=== PATIENT | male | born 1930 | race Caucasian/White ===

== ENCOUNTER 2017-03-26 01:10 | Emergency (ER) | payer MEDICARE ==
[2017-03-26] MEDS ORDERED: NS 0.9% 1000 ML* 1,000 ML IV ONE (01:35)
[2017-03-26] MEDS ORDERED: Ondansetron INJ* 2 MG/ML VIAL IV ONE (01:35)
[2017-03-26] MEDS ORDERED: fentaNYL* 50 MCG/ML 2 ML VIAL (100 MCG VIAL) IV SLOW PU ONE (01:36)
[2017-03-26 02:02] LABS: ABS Basophils 0.1 10^3/ul (0-0.2); ABS Eosinophils 0.2 10^3/ul (0-0.6); ABS Lymphocytes 2.2 10^3/ul (1.0-4.8); ABS Monocytes 0.7 10^3/ul (0-0.8); ABS Neutrophils 8.1 10^3/ul (1.5-7.7); ABS Nucleated RBC 0 10^3/ul; Eosinophil % 2.2 % (0-6); Hematocrit 42 % (42-52); Hemoglobin 14.1 g/dl (14.0-18.0); Lymphocyte % 19.8 % (25-47); Mean Corpuscular HGB Conc 34 g/dl (31-36); Mean Corpuscular Hemoglobin 30 pg (27-31); Mean Corpuscular Volume 88 fL (80-94); Mean Platelet Volume 8 um3 (7.4-10.4); Nucleated Red Blood Cells % 0; Platelet Count 179 10^3/ul (150-450); Red Blood Count 4.76 10^6/ul (4.0-5.4); Red Cell Distribution Width 14 % (10.5-15); White Blood Count 11.3 10^3/ul (3.5-10.8)
[2017-03-26 02:15] LABS: EGFR Non-African American 43.2 (>60); INR 1.89 (0.77-1.02)
[2017-03-26 03:33] LABS: Urine Appearance Clear; Urine Blood Negative (Negative); Urine Color Yellow; Urine Ketones Negative (Negative); Urine Protein Negative (Negative); Urine Specific Gravity 1.012 (1.010-1.030); Urine Urobilinogen Negative (Negative)
--- NOTE | 2017-03-26 04:06 | ED ---
Roberto Caruso Stephanie, scribed for Torito Glasgow MD on 03/26/17 at 0139 . Abdominal Pain/Male - HPI Summary HPI Summary: The pt is an 86 y/o M presenting to the ED with c/o abd pain that began 4 hours ago at 22:30 yesterday. The pain is described as a dull pain that has been getting increasingly worse since onset. The pain is located in the LLQ and does not radiate to the back. The pt denies pain when laughing, dysuria and testicular/groin pain. The pain is rated a 5 in severity. Prior to taking pain medication, the pain was an 8 in severity. The pt denies history of abd pain and kidney stones. The pt reports he had a BM at 12:00 yesterday. - History of Current Complaint Chief Complaint: EDAbdPain Stated Complaint: ABD PAIN Time Seen by Provider: 03/26/17 01:20 Hx Obtained From: Patient Onset/Duration: Lasting Hours - 4, Still Present Timing: Constant Severity Currently: Moderate Pain Intensity: 8 Pain Scale Used: 0-10 Numeric Location: Discrete At: LLQ Radiates: No Character: Dull Aggravating Factor(s): Nothing Alleviating Factor(s): Medications Associated Signs And Symptoms: Negative: Back Pain, Urinary Symptoms - dysuria - Allergies/Home Medications Allergies/Adverse Reactions: Allergies Allergy/AdvReac Type Severity Reaction Status Date / Time Morphine Allergy Unknown Verified 03/26/17 01:34 Reaction Details ENVIRONMENTAL ALLERGIES Allergy Unknown Uncoded 03/26/17 01:34 Reaction Details PMH/Surg Hx/FS Hx/Imm Hx Endocrine/Hematology History: Denies: Hx Diabetes, Hx Thyroid Disease Cardiovascular History: Reports: Hx Hypertension Respiratory History: Reports: Other Respiratory Problems/Disorders - LUNG VOLUME LOW- WHEN TAKING LUNG TEST AT MD OFFICE PER PATIENT Denies: Hx Asthma, Hx Chronic Obstructive Pulmonary Disease (COPD) GI History: Reports: Other GI Disorders - HISTORY OF REDDENED AREAS IN STOMACH- OMEPRAZOLE FOR Denies: Hx Ulcer Musculoskeletal History: Reports: Hx Arthritis - HX OF KNEES Sensory History: Reports: Hx Contacts or Glasses - GLASSES, Hx Hearing Aid - BILATERAL Opthamlomology History: Reports: Hx Contacts or Glasses - GLASSES - Surgical History Surgery Procedure, Year, and Place: 1947-APPENDECTOMY. 1961-INTERNAL HEMORROIDS REMOVED. 2008-RIGHT KNEE REPLACEMENT. 2009-LEFT KNEE REPLACMENT. LEFT KNEE IMPLANT REMOVED FOR INFECTION. LEFT KNEE IMPLANT-2010- JT IMPLANT Hx Anesthesia Reactions: No - Immunization History Date of Influenza Vaccine: Fall 2016 Infectious Disease History: No Infectious Disease History: Denies: Hx Hepatitis, History Other Infectious Disease, Traveled Outside the [place] in Last 30 Days - Family History Known Family History: Positive: Other - CVA- paternal - Social History Occupation: Retired Lives: With Family Alcohol Use: Weekly Alcohol Amount: 1 PER WEEK Substance Use Type: Reports: None Smoking Status (MU): Never Smoked Tobacco Review of Systems Negative: Fever Positive: Abdominal Pain Positive: other - Negative: testicular/groin pain. Negative: dysuria All Other Systems Reviewed And Are Negative: Yes Physical Exam - Summary Physical Exam Summary: VITAL SIGNS: Reviewed. GENERAL: Patient is a well-developed and nourished MALE who is lying comfortable in the stretcher. Patient is not in any acute respiratory distress. HEAD AND FACE: No signs of trauma. No ecchymosis, hematomas or skull depressions. No sinus tenderness. EYES: PERRLA, EOMI x 2, No injected conjunctiva, no nystagmus. EARS: Hearing grossly intact. Ear canals and tympanic membranes are within normal limits. MOUTH: Oropharynx within normal limits. NECK: Supple, trachea is midline, no adenopathy, no JVD, no carotid bruit, no c- spine tenderness, neck with full ROM. CHEST: Symmetric, no tenderness at palpation LUNGS: Clear to auscultation bilaterally. No wheezing or crackles. CVS: Regular rate and rhythm, S1 and S2 present, no murmurs or gallops appreciated. ABDOMEN: Soft, non-tender. No signs of distention. No rebound no guarding, and no masses palpated. Bowel sounds are normal. EXTREMITIES: FROM in all major joints, no edema, no cyanosis or clubbing. NEURO: Alert and oriented x 3. No acute neurological deficits. Speech is normal and follows commands. SKIN: Dry and warm Triage Information Reviewed: Yes Vital Signs On Initial Exam: Initial Vitals Temp Pulse Resp BP Pulse Ox 98.9 F 71 15 129/86 92 03/26/17 01:16 03/26/17 01:16 03/26/17 01:16 03/26/17 01:16 01/20/18 01:16 Vital Signs Reviewed: Yes Diagnostics - Vital Signs Vital Signs Temp Pulse Resp BP Pulse Ox 03/26/17 01:29 84 94 03/26/17 01:26 137/78 03/26/17 01:16 98.9 F 71 15 129/86 92 - Laboratory Result Diagrams: 03/26/17 01:50 03/26/17 01:50 Lab Statement: Any lab studies that have been ordered have been reviewed, and results considered in the medical decision making process. - CT Abdomen/pelvis CT Interpretation: Positive (See Comments) CT Interpretation Completed By: Radiologist - There is a large right renal cyst. There is a small dense renal nodule, left cortical surfface suggesting a complex cyst. 3 cm abdominal aortic aneurism. Abdominal Pain Fem Course/Dx - Course Course Of Treatment: ED physician reviewed lab results and CT scan results with the pt/ Pt is pain free at this time. There is no evidence in blood work or CT scan to explain the source of the patient's pain. The pt is prescribed Percocet for pain to use as needed. The pt was informed of his aortic aneurism which is 3 cm. Follow up with PCP to address aortic aneurism. - Diagnoses Provider Diagnoses: Nonspecific abdominal pain Discharge - Discharge Plan Condition: Stable Disposition: HOME Prescriptions: oxyCODONE/Acetamin 5/325 MG* [Percocet 5/325 TAB*] 1 tab PO Q6H PRN #14 tab MDD 4 PRN Reason: Pain Patient Education Materials: Abdominal Pain (ED) Referrals: Ryan Louis MD [Medical Doctor] - Additional Instructions: RETURN TO EMERGENCY DEPARTMENT FOR ANY NEW OR WORSENING SYMPTOMS The documentation as recorded by the Roberto bruno Stephanie accurately reflects the service I personally performed and the decisions made by me, Torito Glasgow MD.
[2017-03-26 04:28] VITALS: BP 108/78
--- NOTE | 2017-03-26 07:43 | RAD ---
CLINICAL HISTORY: Abdominal pain COMPARISON: None TECHNIQUE: Multiple contiguous axial CT scans were obtained of the abdomen and pelvis, without intravenous contrast enhancement. Coronal and sagittal multiplanar reformations are submitted for review. Oral contrast was not administered. FINDINGS: The study is limited by the lack of intravenous contrast. This limits evaluation of the solid organs and vasculature. LUNG BASES: The lung bases are clear. LIVER: The liver is normal in shape, size, contour, and attenuation. BILE DUCTS: There is no intrahepatic or extrahepatic biliary dilatation. GALLBLADDER: Multiple gallstones are noted. There is no pericholecystic inflammatory change. PANCREAS: The pancreas is normal, without mass or ductal dilatation. SPLEEN: Normal in size and appearance. UPPER GI TRACT: Evaluation of the gastrointestinal tract is limited by incomplete gastric distention. There is a moderate sliding hiatal hernia. SMALL BOWEL AND MESENTERY: The small bowel is normal in contour, course, and caliber. There is no obstruction or dilatation. COLON: There are multiple diverticula throughout the colon ADRENALS: Normal bilaterally. KIDNEYS: There is a large cyst of the upper pole of the right kidney measuring 15.1 cm in maximum dimension. This measures simple fluid in attenuation. There is no appreciable hydronephrosis or nephrolithiasis. There is a dense exophytic cyst of the midpole of the left kidney measuring 0.4 cm in size.. BLADDER: The bladder is smooth in contour. PELVIC ORGANS: The prostate is diffusely enlarged. The seminal vesicles are symmetric. AORTA: There is calcific atherosclerotic disease of the abdominal aorta and its branches. There is ectasia of the infrarenal abdominal aorta up to 3 cm. IVC: Unremarkable LYMPH NODES: There is no lymphadenopathy by size criteria. ABDOMINAL WALL: There is no evidence for abdominal wall hernia. BONES AND SOFT TISSUES: There is diffuse osteopenia. Degenerative changes are noted of the spine and hips and SI joints. OTHER: None IMPRESSION: 1. CHOLELITHIASIS. 2. DIVERTICULOSIS. 3. LARGE SIMPLE RENAL CYSTS MEASURING UP TO 15 CM IN SIZE. THERE IS A 0.4 CM HIGH ATTENUATION CYST OF THE LEFT KIDNEY. 4. 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 5. ENLARGED PROSTATE. 6. HIATAL HERNIA
== END 2017-03-26 04:20 | disposition home or self-care (01) ==
LOC: ED 01:10
DX: R10.32 Left lower quadrant pain (principal); K80.20 Calculus of gallbladder without cholecystitis without obstruction; K57.90 Diverticulosis of intestine, part unspecified, without perforation or abscess without bleeding; I70.90 Unspecified atherosclerosis; N40.0 Benign prostatic hyperplasia without lower urinary tract symptoms
CPT/HCPCS: 36415; 74176; 80053; 81003; 82150; 83605; 83690; 83735; 85025; 85610; 85730; 86140; 87040; 96374; 96375; 99284; J2405; J3010

== ENCOUNTER 2018-03-31 02:32 | Observation (INO) | payer MEDICARE ==
--- OUTSIDE RECORDS SUMMARY | 2018-03-31 02:38 | XMS REPORT ---
:1930 External Reference #:[id number] Author Organization [facility] Address [address] [place] [address] Phone [phone] Care Team Providers Name Role Phone Penelope Cain M.D. Care Team Information Insurance Special Agent Unavailable Penelope Cain M.D. Primary Care Physician Unavailable Payers Type Date Identification Numbers Payment Provider Subscriber Commercial Effective: Policy Number: [facility] Joseph Alcantara 2014 [id number] Medicare Group Number: [id number] [address] [id number] PayID: [id number] [place] [address] Problems Date Description Provider Status Onset: 02/25/2013 Hyperlipidemia Ryan Louis M.D. Active Onset: 02/25/2013 Essential hypertension Ryan Louis M.D. Active Onset: 02/25/2013 Gastroesophageal reflux disease Ryan Louis M.D. Active Onset: 02/25/2013 Benign prostatic hypertrophy without Ryan Louis M.D. Active outflow obstruction Onset: 01/11/2014 Atrial fibrillation Ryan Louis M.D. Active Onset: 07/18/2015 Age related macular degeneration Penelope Cain M.D. Active Onset: 10/20/2015 Chronic atrial fibrillation Kaye Dunbar NP Active Onset: 08/24/2016 Chronic kidney disease stage 3 Penelope Cain M.D. Active Onset: 03/26/2017 Aortic aneurysm Penelope Cain M.D. 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 2018 Tablet By Jefe Gregorio On , Tuesday, Tuesday, Tuesday, Tuesday & Sat, & 1 & 1/2 Tabs On Tuesday & Atenolol 11/16/ Active Tablets 100mg 30tabs take 1/2 I10 Joe Lares 2017 tablet by darline Guzman M.DKavin every day Miralax 07/09/ Active Powder 3350NF 17 gm Unknown 2016 powder in fluid daily as needed Protonix 05/31/ Active Tablets DR 40mg 90tabs 1 by mouth K21.9 Ryan Louis, 2014 every day MFlorence prn Proscar / Active Tablets 5mg 90tabs 1 by mouth N40.0 Penelope 0000 every day Britany Cain Norvasc / Active Tablets 5mg 90tabs 1 po qd I10 Ryan Louis Fabienne.DKavin Flomax / Active Capsules 0.4mg 30caps 1 po qd N40.0 Unknown 0000 Daily Multiple / Active Tablets one by Unknown Vitamins 0000 mouth once a day Vitamin C / Active Tablets 500mg 1 by mouth Unknown 0000 every day Preservision / Active Capsules Areds 2 1 by mouth Unknown Areds 2 0000 once a day Vitamin D / Active Capsules 1000Unit 1 by mouth Unknown (Cholecalcifero 0000 every day l) Docusate Sodium / Active Capsules 100mg 1 tab Unknown 0000 twice a day as needed Warfarin Sodium / Active Tablets 2.5mg 30tabs take as I48.0 Joe A. 0000 directed Megan, by MD Garg I48.2 Lipitor Active Tablets 20mg 90tabs Take One E78.4 Chino J. Tablet By Darline Patel Every M.D. Day Warfarin 11/03/2017 - Hx Tablets 3mg 2tabs 1 by mouth Joe A. Sodium 12/08/2017 once a day on Darlow, 11/04/17 and M.DKavin 11/05/17, then return to 2.5 mg once a day on 11/06/17 Atenolol 05/31/2014 - Hx Tablets 50mg 90tabs take one I10 Penelope 11/16/2016 tablet by Ant mouth every M.D. day Zostavax 02/21/2014 - Hx Solution [id number] 1units 1 injection Ryan 04/19/2014 Rec nt/0.6 subcutaneous Heriberto, 5ML M.DKavin Hearing AIDS, 02/14/2013 - Hx 1Pair Ryan Replacement 01/11/2014 Britany Louis Omeprazole - Hx Tablets DR 20mg 90tabs 1 po qd 530.81 Ryan 05/31/2014 Britany Louis Vitamin - Hx Tablets 1000Un 1 by mouth Unknown D-1000 11/22/2014 it every day Maximum Strength Eye Vitamins - Hx Capsules One a day by Unknown 11/22/2014 mouth Inderal LA - Hx Caps ER 80mg 90caps Take One 401.9 Ryan 05/31/2014 24HR Capsule By Darline Louis Every M.D. Day Docusate - Hx Tablets 8.6-50 take one Unknown Sodium & 07/09/2016 mg tablet by Senna mouth every Stimulant day as needed Laxative/Stoo l Softener Senokot Extra - Hx Tablets 17.2mg as needed Unknown Strength 03/06/2018 Immunizations CPT Code Status Date Vaccine Lot # [id number] Given 01/12/2016 High-Dose, Influenza Virus Vacccine-fluzone 65 and older 23376 Given 10/20/2015 Tdap Tetanus, W Pertussis [id number] Given 10/20/2015 Pneumococcal Conjugate Vacc-13 [id number] Given 11/20/2014 High-Dose, Influenza Virus Vacccine-fluzone 65 and older 08981 Given 11/26/2013 High-Dose, Influenza Virus Vacccine-fluzone 65 and older 09730 Given 01/23/2013 High-Dose, Influenza Virus Vacccine-fluzone 65 and older Vital Signs Date Vital Result Comment 03/06/2018 BP Systolic 148 mmHg BP Diastolic 84 mmHg Heart Rate 68 /min Body Temperature 98.4 F Respiratory Rate 18 /min Height 68 inches 5'8" measured 01/21/16 Weight 215.00 lb BMI (Body Mass Index) 32.7 kg/m2 07/12/2017 BP Systolic 140 mmHg BP Diastolic 74 mmHg Heart Rate 84 /min Body Temperature 97.7 F Respiratory Rate 20 /min Height 68 inches 5'8" measured 01/21/16 Weight 215.00 lb BMI (Body Mass Index) 32.7 kg/m2 01/12/2017 BP Systolic 140 mmHg BP Diastolic 80 mmHg Heart Rate 68 /min Body Temperature 97.7 F Height 68 inches 5'8" measured 01/21/16 Weight 215.00 lb BMI (Body Mass Index) 32.7 kg/m2 08/24/2016 BP Systolic 138 mmHg BP Diastolic 70 mmHg Heart Rate 86 /min Body Temperature 98.8 F Respiratory Rate 16 /min Height 68 inches 5'8" measured 01/21/16 Weight 211.50 lb BMI (Body Mass Index) 32.2 kg/m2 07/21/2016 BP Systolic 100 mmHg BP Diastolic 64 mmHg Heart Rate 84 /min Body Temperature 98.4 F Respiratory Rate 16 /min Height 68 inches 5'8" measured 01/21/16 Weight 212.12 lb BMI (Body Mass Index) 32.2 kg/m2 07/13/2016 BP Systolic 130 mmHg BP Diastolic 80 mmHg Heart Rate 72 /min Body Temperature 98.6 F Respiratory Rate 16 /min Height 68 inches 5'8" measured 01/21/16 Weight 214.50 lb BMI (Body Mass Index) 32.6 kg/m2 01/21/2016 BP Systolic 128 mmHg BP Diastolic 74 mmHg Heart Rate 72 /min Body Temperature 98.6 F Respiratory Rate 16 /min Height 68 inches 5'8" measured 01/21/16 Weight 214.25 lb BMI (Body Mass Index) 32.6 kg/m2 10/20/2015 BP Systolic 126 mmHg BP Diastolic 62 mmHg Heart Rate 66 /min Irregular Body Temperature 97.8 F Respiratory Rate 18 /min Height 68 inches 5'8" Weight 213.25 lb BMI (Body Mass Index) 32.4 kg/m2 11/22/2014 BP Systolic 118 mmHg BP Diastolic 60 mmHg Heart Rate 58 /min Body Temperature 97.3 F Respiratory Rate 18 /min O2 % BldC Oximetry 97 % SOB Height 68 inches 5'8" Weight 209.00 lb BMI (Body Mass Index) 31.8 kg/m2 10/18/2014 BP Systolic 140 mmHg BP Diastolic 60 mmHg Heart Rate 68 /min Body Temperature 97.7 F Respiratory Rate 12 /min Height 70 inches 5'10" Weight 209.00 lb BMI (Body Mass Index) 30.0 kg/m2 07/16/2014 BP Systolic 122 mmHg BP Diastolic 80 mmHg Heart Rate 78 /min Body Temperature 97.5 F Respiratory Rate 20 /min Height 70 inches 5'10" Weight 213.00 lb BMI (Body Mass Index) 30.6 kg/m2 05/31/2014 BP Systolic 138 mmHg BP Diastolic 86 mmHg Heart Rate 84 /min Body Temperature 97.6 F Respiratory Rate 18 /min Height 70 inches 5'10" Weight 217.25 lb BMI (Body Mass Index) 31.2 kg/m2 04/19/2014 BP Systolic 122 mmHg BP Diastolic 82 mmHg Heart Rate 68 /min Body Temperature 97.5 F Respiratory Rate 16 /min Height 70 inches 5'10" Weight 217.00 lb BMI (Body Mass Index) 31.1 kg/m2 01/11/2014 BP Systolic 140 mmHg BP Diastolic 80 mmHg Heart Rate 60 /min Body Temperature 95.8 F Respiratory Rate 16 /min Height 70 inches 5'10" Weight 216.00 lb BMI (Body Mass Index) 31.0 kg/m2 07/11/2013 BP Systolic 120 mmHg BP Diastolic 68 mmHg Heart Rate 84 /min Body Temperature 99.0 F Respiratory Rate 16 /min Height 70 inches 5'10" Weight 220.00 lb BMI (Body Mass Index) 31.6 kg/m2 2012 BP Systolic 118 mmHg BP Diastolic 66 mmHg Heart Rate 72 /min Body Temperature 97.4 F Respiratory Rate 22 /min Height 70 inches 5'10" Weight 214.00 lb BMI (Body Mass Index) 30.7 kg/m2 Right Visual Acuity Distance 20/25 Left Visual Acuity Distance 20/25 Results Test Date Test Result H/L Range Note Laboratory test finding 03/06/2018 TSH <pending> 0.5-5.0 Free T4 <pending> 0.75-1.54 Inr/Protime 02/23/2018 Inr 1.95 High 0.77-1.02 Laboratory test 02/16/2018 Surgical Pathology SEE RESULT 1 finding BELOW Inr/Protime 02/02/2018 Inr 2.29 High 0.77-1.02 Inr/Protime 12/27/2017 Inr 2.22 High 0.77-1.02 Inr/Protime 12/05/2017 Inr 2.81 High 0.77-1.02 2 Inr/Protime 11/08/2017 Inr 2.08 High 0.77-1.02 2 Inr/Protime 11/03/2017 Inr 1.61 High 0.77-1.02 2 Inr/Protime 09/02/2017 Inr 2.97 High 0.77-1.02 2 Inr/Protime 08/02/2017 Inr 2.23 High 0.77-1.02 2 Laboratory test 07/15/2017 Surgical Pathology SEE RESULT 3, 4 finding BELOW Comprehensive 07/12/2017 Sodium 139 mEq/L 134-149 Metabolic Prof Potassium 4.8 mEq/L 3.6-5.5 Chloride 102 mEq/L 94-112 Carbon Dioxide 23 mEq/L 21-32 Glucose 98 mg/dL 70-105 BUN 22 mg/dL 6-26 Creatinine 1.6 mg/dL High 0.6-1.4 BUN/Creat Ratio 13.8 CALC 8.0-36.0 Calcium 9.5 mg/dL 8.6-10.2 Total Protein 7.4 g/dL 6.4-8.3 Albumin 4.5 g/dL 3.8-5.5 Globulin 2.9 g/dL 2.0-4.8 A/G Ratio 1.6 CALC 0.6-2.3 Alk. Phosphatase 72 U/L 22-95 Alt (SGPT) 21 U/L 7-35 Ast (Sgot) 20 U/L 5-34 Total Bilirubin 0.6 mg/dL 0.2-1.3 GFR Non- 44 ml/min/1.73m^ Low >=60 GFR 53 ml/min/1.73m^ Low >=60 Lipid Profile 07/12/2017 Cholesterol 158 mg/dL 120-200 Triglycerides 178 mg/dL 30-200 HDL Cholesterol 43 mg/dL 30-70 LDL (Calculated) 79 CALC 0-129 VLDL Cholesterol 36 mg/dL 0-50 HDL Risk Factor 3.7 CALC 0.0-4.4 Laboratory test finding 07/12/2017 Free T4 0.92 ng/dL 0.75-1.54 TSH 5.38 mIU/L 0.50-6.00 CBC Electronic a 07/12/2017 WBC 8.2 x10^3/UL 4.0-10.0 RBC 4.94 x10^6/UL 3.93-6.00 HGB 14.8 g/dL 12.0-17.0 HCT 44 % 35-50 MCV 88.1 fL 80.0-95.0 MCH 30.0 pg 25.6-32.2 MCHC 34.0 g/dL 32.2-36.0 RDW-CV 14.3 % 11.6-14.4 PLT 181 x10^3/UL 163-400 MPV 9.9 fL 9.4-12.4 James# 3.23 x10^3/UL 1.56-6.13 Lymph# 3.75 x10^3/UL High 1.18-3.74 [place]# 0.77 x10^3/UL 0.24-0.82 Eos # 0.4 x10^3/UL 0.0-0.5 Baso # 0.05 x10^3/UL 0.01-0.08 James% 39.6 % 34.0-70.0 Lymph % 45.8 % 20.0-52.0 [place]% 9.4 % 5.0-12.0 Eos% 4.5 % 0.7-7.0 Baso% 0.6 % 0.1-1.2 Laboratory test 07/12/2017 Inr (Fma) 2.5 2-3 finding Inr/Protime 06/23/2017 Inr 2.04 High 0.77-1.02 Laboratory test 06/03/2017 Surgical Pathology SEE RESULT 5, 6 finding BELOW Laboratory test 05/04/2017 Inr/Protime 2.04 High 0.77-1.02 7, 8 finding Laboratory test 04/11/2017 Inr/Protime 1.60 High 0.77-1.02 9 finding Urinalysis Profile 03/26/2017 Urine Color Yellow Urine Appearance Clear Urine Specific Cow[place]ill 1.012 1.010-1.030 Urine pH 6.0 5-9 Urine Urobilinogen Negative Negative Urine Ketones Negative Negative Urine Protein Negative Negative Urine Leukocytes Negative Negative Urine Blood Negative Negative * * Negative 10 Urine Nitrite Negative Negative Urine Bilirubin Negative Negative Urine Glucose Negative Negative Laboratory test 02/09/2017 Inr/Protime 1.69 High 0.77-1.02 11 finding Laboratory test 01/12/2017 Inr (Fma) 1.7 Low 2.0-3.0 finding Laboratory test 01/10/2017 Inr/Protime 1.56 High 0.89-1.11 12 finding Laboratory test 12/15/2016 Inr/Protime 1.95 High 0.89-1.11 finding Laboratory test 09/08/2016 Inr/Protime 1.80 High 0.89-1.11 13 finding Laboratory test 07/28/2016 TSH (Thyroid Stim 4.18 mcIU/mL 0.34-5.60 14 finding Horm) Free T4 (Free Thyroxine) 0.89 ng/dL 0.61-1.12 15 Lipid Profile (Trig/Chol/HDL) 07/28/2016 Triglycerides 150 mg/dL 16 Cholesterol 169 mg/dL 17 HDL Cholesterol 39.1 mg/dL 18 LDL Cholesterol 100 mg/dL 19 Comp Metabolic Panel 07/28/2016 Sodium 136 mmol/L 133-145 Potassium 4.5 mmol/L 3.5-5.0 Chloride 105 mmol/L 101-111 Co2 Carbon Dioxide 27 mmol/L 22-32 Anion Gap 4 mmol/L 2-11 Glucose 93 mg/dL 70-100 Blood Urea Nitrogen 21 mg/dL 6-24 Creatinine 1.45 mg/dL High 0.67-1.17 BUN/Creatinine Ratio 14.5 8-20 Calcium 9.3 mg/dL 8.6-10.3 Total Protein 6.7 g/dL 6.4-8.9 Albumin 3.9 g/dL 3.2-5.2 Globulin 2.8 g/dL 2-4 Albumin/Globulin Ratio 1.4 1-3 Total Bilirubin 0.80 mg/dL 0.2-1.0 Alkaline Phosphatase 65 U/L 34-104 Alt 16 U/L 7-52 Ast 19 U/L 13-39 Egfr Non- 46.0 >60 Egfr 59.2 >60 20 CBC No Diff 07/28/2016 White Blood Count 7.9 10^3/uL 3.5-10.8 Red Blood Count 5.07 10^6/uL 4.0-5.4 Hemoglobin 14.8 g/dL 14.0-18.0 Hematocrit 45 % 42-52 Mean Corpuscular Volume 89 fL 80-94 Mean Corpuscular Hemoglobin 29 pg 27-31 Mean Corpuscular HGB Conc 33 g/dL 31-36 Red Cell Distribution Width 15 % 10.5-15 Platelet Count 175 10^3/uL 150-450 Mean Platelet Volume 9 um3 7.4-10.4 Laboratory test finding 07/28/2016 Inr/Protime 1.59 High 0.89-1.11 21 Laboratory test finding 06/03/2016 Inr/Protime 1.59 High 0.89-1.11 22 Laboratory test finding 05/03/2016 Inr/Protime 2.29 High 0.89-1.11 23 Laboratory test finding 01/19/2016 Inr/Protime 2.32 High 0.89-1.11 24 Complete Blood Count 11/04/2015 WBC 8.3 x10^3/UL 3.6-9.6 RBC 4.77 x10^6/UL 3.90-5.70 HGB 14.4 g/dL 12.1-17.2 HCT 43 % 36-50 MCV 91.0 fL 82.2-97.4 MCH 30.1 pg 27.6-33.3 MCHC 33.1 g/dL 33.0-35.5 RDW 14.6 % High 11.6-13.7 PLT 164 x10^3/UL 150-400 MPV 8.4 fL 7.4-10.4 Gran # 4.1 x10^3/UL 1.5-7.2 Lymph# 3.8 x10^3/UL 0.7-4.9 [place]# 0.4 x10^3/UL 0.1-0.9 Gran % 47.8 % 42.2-75.2 Lymph % 46.7 % 20.5-51.1 [place]% 5.5 % 1.7-9.3 Lipid Profile 11/04/2015 Cholesterol 140 mg/dL 120-200 Triglycerides 122 mg/dL 30-200 HDL Cholesterol 41 mg/dL 30-70 LDL (Calculated) 75 CALC 0-129 VLDL Cholesterol 24 mg/dL 0-50 HDL Risk Factor 3.4 CALC 0.0-4.4 Comprehensive Metabolic Prof 11/04/2015 Sodium 143 mEq/L 134-149 Potassium 5.2 mEq/L 3.6-5.5 Chloride 106 mEq/L 94-112 Carbon Dioxide 23 mEq/L 21-32 Glucose 104 mg/dL 70-105 BUN 31 mg/dL High 6-26 Creatinine 1.6 mg/dL High 0.6-1.4 BUN/Creat Ratio 19.4 CALC 8.0-36.0 Calcium 9.2 mg/dL 8.6-10.2 Total Protein 6.7 g/dL 6.4-8.3 Albumin 3.9 g/dL 3.8-5.5 Globulin 2.8 g/dL 2.0-4.8 A/G Ratio 1.4 CALC 0.6-2.3 Alk. Phosphatase 71 U/L 22-95 Alt (SGPT) 14 U/L 7-35 Ast (Sgot) 21 U/L 5-34 Total Bilirubin 0.6 mg/dL 0.2-1.3 GFR Non- 44 ml/min/1.73m^ Low >=60 GFR 53 ml/min/1.73m^ Low >=60 Laboratory test finding 11/04/2015 Inr (Fma) 2.4 2.0-3.0 Laboratory test finding 10/20/2015 Inr (Fma) 2.5 2.0-3.0 Inr/Protime 11/20/2014 Inr 2.16 High 0.78-1.07 Laboratory test finding 09/26/2014 Inr (Fma) 2.5 2-3 Comprehensive Metabolic Prof 09/26/2014 Sodium 141 mEq/L 134-149 Potassium 4.3 mEq/L 3.6-5.5 Chloride 106 mEq/L 94-112 Carbon Dioxide 23 mEq/L 21-32 Glucose 103 mg/dL 70-105 BUN 28 mg/dL High 6-26 Creatinine 1.6 mg/dL High 0.6-1.4 BUN/Creat Ratio 17.5 CALC 8.0-36.0 Calcium 9.2 mg/dL 8.6-10.2 Total Protein 7.3 g/dL 6.4-8.3 Albumin 4.1 g/dL 3.8-5.5 Globulin 3.2 g/dL 2.0-4.8 A/G Ratio 1.3 CALC 0.6-2.3 Alk. Phosphatase 85 U/L 22-95 Alt (SGPT) 21 U/L 7-35 Ast (Sgot) 21 U/L 5-34 Total Bilirubin 0.5 mg/dL 0.2-1.3 Lipid Profile 09/26/2014 Cholesterol 175 mg/dL 120-200 Triglycerides 112 mg/dL 30-200 HDL Cholesterol 38 mg/dL 30-70 LDL (Calculated) 115 CALC 0-129 VLDL Cholesterol 22 mg/dL 0-50 HDL Risk Factor 4.6 CALC High 0.0-4.4 Laboratory test finding 08/15/2014 Inr (Fma) 2.5 2.0-3.0 Laboratory test finding 07/16/2014 Inr (Fma) 2.6 2.0-3.0 PT/Inr (CMC) 05/03/2014 Inr 2.21 High 0.78-1.07 25 Laboratory test finding 04/19/2014 Inr (Fma) 1.6 Low 2.0-3.0 CBC Electronic (a) 04/19/2014 WBC 9.0 3.6-9.6 RBC 4.95 3.90-5.70 Hemoglobin (Fma/CMC/CTX) 14.9 g/dL 12.1 - 17.2 Hematocrit (Fma/CMC/CTX) 45.5 % 36.1 - 50.3 Platelets 190 10^3/ul 150-400 Lymph% 41.0 % 17.0-48.0 Mixed% 6.5 Neutrophils % 52.5 Mean Corpuscular Vol 92 82.2-97.4 Mean Corpuscular Hemoglobin 30.0 27.6-33.3 Mean Corpuscular Hemo Concen 32.6 32.0-36.0 RDW 13.3 11.6-13.7 Mean Platelet Volume 7.2 5.5-11.0 Comp Metabolic-ALL Lab [facility] 01/16/2014 Sodium 139 mmol/L 133-145 Potassium 4.3 mmol/L 3.5-5.0 26 Chloride 106 mmol/L 101-111 Co2 Carbon Dioxide 27 mmol/L 22-32 Anion Gap 6 mmol/L 2-11 Glucose 90 mg/dL 70-100 Blood Urea Nitrogen 26 mg/dL High 6-24 Creatinine 1.57 mg/dL High 0.67-1.17 BUN/Creatinine Ratio 16.6 8-20 Calcium 9.1 mg/dL 8.6-10.3 Total Protein 6.5 g/dL 6.4-8.9 Albumin 4.0 g/dL 3.2-5.2 Globulin 2.5 g/dL 2-4 Albumin/Globulin Ratio 1.6 1-3 Total Bilirubin 0.50 mg/dL 0.2-1.0 Alkaline Phosphatase 72 U/L 34-104 Alt 16 U/L 7-52 Ast 16 U/L 13-39 Egfr Non- 42.2 >60 Egfr 54.3 >60 27 Lipid Panel-[facility] 01/16/2014 Triglycerides 137 mg/dL 28 Cholesterol 140 mg/dL 29 HDL Cholesterol 31.9 mg/dL 30 LDL Cholesterol 81 mg/dL 31 Laboratory test finding 01/11/2014 Inr (Fma) 2.7 2.0-3.0 Laboratory test finding 11/07/2013 Inr (Fma) 2.7 2.0-3.0 Laboratory test finding 10/08/2013 Inr (Fma) 2.9 2.0-3.0 Surgical Pathology 08/02/2013 S RUN DATE: <SEE NOTE> Laboratory test finding 07/18/2013 Inr 3.38 High 0.85-1.06 Comp Metabolic-ALL Lab 07/18/2013 Sodium 138 mmol/L 133-145 [facility] Potassium 4.2 mmol/L 3.7-5.6 Chloride 107 mmol/L 101-111 Co2 Carbon Dioxide 26 mmol/L 22-32 Anion Gap 5 mmol/L 2-11 Glucose 104 mg/dL High 70-100 Blood Urea Nitrogen 30 mg/dL High 6-24 Creatinine 1.72 mg/dL High 0.67-1.17 BUN/Creatinine Ratio 17.4 8-20 Calcium 8.7 mg/dL 8.6-10.3 Total Protein 6.6 g/dL 6.4-8.9 Albumin 3.9 g/dL 3.2-5.2 Globulin 2.7 g/dL 2-4 Albumin/Globulin Ratio 1.4 1-3 Total Bilirubin 0.60 mg/dL 0.2-1.0 Alkaline Phosphatase 64 U/L 34-104 Alt 14 U/L 7-52 Ast 15 U/L 13-39 Egfr Non- 38.1 >60 Egfr 49.0 >60 33 Lipid Panel-[facility] 07/18/2013 Triglycerides 142 mg/dL 34 Cholesterol 139 mg/dL 35 HDL Cholesterol 33.8 mg/dL 36 LDL Cholesterol 77 mg/dL 37 1 SEE RESULT BELOW Name: JOSEPH ALCANTARA : [address]: Gillian Astorga MD Acct: [id number] Unit: [id number] AGE: 87 Location: [facility] Re02/16/18 SEX: M Status: REG REF SPEC: [id number] NENITA: 02/16/18- SUBM DR: Gillian Astorga MD REQ: [id number] RECD: 02/16/18 STATUS: MIRI MICHAUD DR: Penelope Cain MD _ ORDERED: LEVEL 4 FINAL DIAGNOSIS Skin, right proximal posterior thigh, biopsy: -- Seborrheic keratosis, focally inflamed. PRE-OPERATIVE DIAGNOSIS Suspicious irregular multi-colored papule; malignant melanoma vs pigmented seborrheic keratosis GROSS DESCRIPTION The specimen is received in formalin labeled, Right Proximal Posterior Thigh , and consists of a 1.0 x 0.8 cm patchy burnett-white ovoid wrinkled skin shave with an eccentric 0.6 x 0.4 cm burnett-brown to guthrie macule. The specimen is inked, serially sectioned and submitted entirely in one cassette. Signed by and Reported on: Charla Del Toro MD 02/17/18 1236 END OF REPORT DEPARTMENT OF PATHOLOGY, [address] [place] [address] Chandler Decker M.D. Director [facility] # [id number] STANDING ORDER ORDERED 06/23/17 EXPIRES 12/23/17 3 1171-A:Morphology: ;DDX: Squamous Cell Carcinoma vs. Inflamed seborrheic keratosis;Location: left 4 SEE RESULT BELOW Name: JOSEPH ALCANTARA : [address]: Gillian Astorga MD Acct: [id number] Unit: [id number] AGE: 86 Location: [facility] Re07/15/17 SEX: M Status: REG REF SPEC: [id number] NENITA: 07/15/17- SUBM DR: Gillian Astorga MD REQ: [id number] RECD: 07/15/17 STATUS: MIRI MICHAUD DR: Penelope Cain MD _ ORDERED: LEVEL 4/2 COMMENTS: [id number] FINAL DIAGNOSIS 1. Skin, left posterior auricular scalp, biopsy: -- Seborrheic keratosis, irritated and inflamed. 2. Skin, right dorsal forearm, excision: -- Scar, excised. -- No evidence of residual basal cell carcinoma. -- Incidental intradermal melanocytic nevus, excised. COMMENT: The previous lesion at this site of specimen 2 ([id number] #1) has been completely excised. CLINICAL HISTORY 2) Please check margins PRE-OPERATIVE DIAGNOSIS 1) Squamous cell carcinoma vs. inflamed seborrheic keratosis; 2) biopsy proven, well healed scar; basal cell carcinoma GROSS DESCRIPTION 1. The specimen is received in formalin labeled, Left Posterior Auricular Scalp, and consists of a 0.9 x 0.5 x 0.2 cm burnett-mari irregular scaly to papillary skin fragment which is inked, trisected and submitted entirely in one cassette. 2. The specimen is received in formalin labeled, Right Dorsal Forearm, and consists of a 4.2 x 1.7 cm mottled burnett-brown wrinkled hairbearing unoriented skin ellipse excised to a depth of 0.2 cm. The specimen is inked, serially sectioned and entirely submitted in cassettes A through D to included ellipse ends in cassette A. CONTINUED ON NEXT PAGE DEPARTMENT OF PATHOLOGY, [address] [place] [address] Chandler Decker M.D. Director [facility] # [id number] RUN DATE: 07/20/17 [facility] LAB LIVE PAGE 2 Patient: MARICRUZJOSEPH [id number] (Continued) GROSS DESCRIPTION (Continued) Signed by and Reported on: Charla Del Toro MD 07/19/17 0849 END OF REPORT DEPARTMENT OF PATHOLOGY, [address] [place] [address] Chandler Decker M.D. Director [facility] # [id number] 3445-A:Morphology: erythematous tender papule with hyperkeratotic scale;DDX : Squamous Cell Carcin 6 SEE RESULT BELOW Name: MARICRUZJOSEPH : [address]: Gillian Astorga MD Acct: [id number] Unit: [id number] AGE: 86 Location: [facility] Re06/03/17 SEX: M Status: REG REF SPEC: [id number] NENITA: 06/03/17- SUBM DR: Gillian Astorga MD REQ: [id number] RECD: 06/03/171308 STATUS: MIRI MICHAUD DR: Penelope Pearson MD _ ORDERED: LEVEL 4/4 COMMENTS: [id number] FINAL DIAGNOSIS 1. Skin, right dorsal forearm, biopsy: -- Basal cell carcinoma, superficial and nodular type, with adnexal differentiation, ulcerated. 2. Skin, left mid back, biopsy: -- Seborrheic keratosis, irritated and inflamed. 3. Skin, left distal anterior thigh, biopsy: -- Junctional melanocytic nevus with architectural disorder and moderate cytologic atypia. -- The lesion is excised in the planes of sectioning examined. 4. Skin, mid central lower chest, biopsy: -- Compound melanocytic nevus with architectural disorder and moderate cytologic atypia. -- The lesion is excised in the planes of sectioning examined. PRE-OPERATIVE DIAGNOSIS 1 2) Erythematous tender papule with hyperkeratotic scale; squamous cell carcinoma; 3 4) irregular brown macule; dysplastic nevus GROSS DESCRIPTION 1. The specimen is received in formalin labeled, Right Dorsal Forearm, and consists of a 1.1 x 0.9 x 0.2 cm burnett-white ovoid hairbearing focally scabrous to keratotic skin fragment which is inked, serially sectioned and entirely submitted in one cassette. 2. The specimen is received in formalin labeled, Left Mid Back, and consists of a 2.2 by up to 1.4 cm burnett-white irregular skin shave with a central 1.6 x 1.2 by up to 0.2 cm mottled burnett-guthrie to keratotic burnett-white to mari focally raised lesion. The specimen is inked, serially sectioned and entirely submitted in two cassettes. CONTINUED ON NEXT PAGE DEPARTMENT OF PATHOLOGY, [address] [place] [id number] Chandler Decker M.D. Director [facility] # [id number] RUN DATE: 06/07/17 [facility] LAB LIVE PAGE 2 Patient: JOSEPH ALCANTARA [id number] (Continued) GROSS DESCRIPTION (Continued) GROSS DESCRIPTION (Continued) 3. The specimen is received in formalin labeled, Left Distal Anterior Thigh, and consists of a 1.0 x 0.7 cm burnett-white ovoid skin shave with a central 0.5 x 0.3 cm variegated burnett-brown macule. The specimen is inked, serially sectioned and entirely submitted in one cassette. 4. The specimen is received in formalin labeled, Mid Central Lower Chest, and consists of a 0.8 x 0.6 cm burnett-white ovoid hairbearing skin shave with a central 0.3 x 0.3 variegated burnett-brown macule. The specimen is inked, serially sectioned and entirely submitted in one cassette. Signed (signature on file) Charla Del Toro MD 04/24 0926 END OF REPORT DEPARTMENT OF PATHOLOGY, [address] [place] [address] Chandler Decker M.D. Director [facility] # [id number] ORDERED: 12/15/16 EXPIRES: 06/15/17 8 ORDERED: 12/15/16 EXPIRES: 06/15/17 9 ORDERED: 12/15/16 EXPIRES: 06/15/17 10 *Ascorbic acid is present which may interfere with detection of blood. 11 Please note the change in INR reference range effective 17. 12 ORDERED: 12/15/16 EXPIRES: 06/15/17 13 ORDERED 05/13/16 EXPIRES 11/13/16 14 FASTING 15 FASTING 16 Desirable <150 Borderline high 150-199 High 200-499 Very High >500 17 Desirable <200 Borderline high 200-239 High >239 18 Low <40 Desirable: 40-60 High: >60 19 Desirable: <100 mg/dL Near Optimal: 100-129 mg/dL Borderline High: 130-159 mg/dL High: 160-189 mg/dL Very High: >189 mg/dL 20 Because ethnic data is not always readily available, this report includes an eGFR for both -Americans and non- Americans. The National Kidney Disease Education Program (NKDEP) does not endorse the use of the MDRD equation for patients that are not between the ages of 18 and 70, are , have extremes of body size, muscle mass, or nutritional status, or are non- or non-. According to the National Kidney Foundation, irrespective of diagnosis, the stage of the disease is based on the level of kidney function: Stage Description GFR(mL/min/1.73 m(2)) 1 Kidney damage with normal or decreased GFR 90 2 Kidney damage with mild decrease in GFR 60-89 3 Moderate decrease in GFR 30-59 4 Severe decrease in GFR 15-29 5 Kidney failure <15 (or dialysis) 21 ORDERED 05/13/16 EXPIRES 11/13/16 22 ORDERED 05/13/16 EXPIRES 11/13/16 23 ORDERED 11/05/15 EXPIRES 05/06/16 24 ORDERED 11/05/15 EXPIRES 05/06/16 25 Please note: Effective April 03, 2014, the reference value for this test has changed due to the validation and activation of a new reagent lot number. 26 Potassium reference range changed effective 01/06/14 27 Because ethnic data is not always readily available, this report includes an eGFR for both -Americans and non- Americans. The National Kidney Disease Education Program (NKDEP) does not endorse the use of the MDRD equation for patients that are not between the ages of 18 and 70, are , have extremes of body size, muscle mass, or nutritional status, or are non- or non-. According to the National Kidney Foundation, irrespective of diagnosis, the stage of the disease is based on the level of kidney function: Stage Description GFR(mL/min/1.73 m(2)) 1 Kidney damage with normal or decreased GFR 90 2 Kidney damage with mild decrease in GFR 60-89 3 Moderate decrease in GFR 30-59 4 Severe decrease in GFR 15-29 5 Kidney failure <15 (or dialysis) 28 Desirable <150 Borderline high 150-199 High 200-499 Very High >500 29 Desirable <200 Borderline high 200-239 High >239 30 Low <40 Desirable: 40-60 High: >60 31 Desirable <100 Near Optimal 100-129 Borderline high 130-159 High 160-189 Very High >189 32 RUN DATE: 08/07/13 [facility] LIVE PAGE 1 RUN TIME: [id number] [place], [place] [address] Specimen Inquiry Name: JOSEPH ALCANTARA : [address]: Rudy Pearson MD Acct: [id number] Unit: [id number] AGE: 82 Location: [facility] Re08/02/13 SEX: M Status: REG [facility] SPEC: [id number] NENITA: 08/02/13- SUBM DR: Rudy Pearson MD REQ: [id number] RECD: 08/03/131042 STATUS: MIRI MICHAUD DR: Donell Louis MD _ ORDERED: MB-45 (HMB-45)/2, MELAN-A STAIN/2, LEVEL IV FINAL DIAGNOSIS Left posterior neck, wide excision: A. Skin and subcutaneous tissue with prior biopsy site related changes. B. No residual melanocytic neoplasia identified. COMMENTS: Immunohistochemical stains for Melan-A and HMB45 were performed on blocks G and H. These stain support the above rendered diagnosis. PRE-OPERATIVE DIAGNOSIS Melanoma in situ left posterior neck, suture wisdom twelve o'clock medial apex margin. GROSS DESCRIPTION The specimen is received in formalin labeled Joseph Alcantara, Wide Excision Melanoma Left Posterior Neck, Suture wisdom 12 O'clock Medial [place] Margin, and consists of a 7.2 x 1.8 cm. burnett hair bearing skin ellipse excised to a maximum depth of 1.3 cm. There is a central 5.5 cm. linear scar. There is an attached suture to one long axis which designates 12 o'clock medial apex margin. The specimen is inked as follows: 9 o'clock half black, 3 o'clock half blue, and 12 o'clock tip green. The specimen is serially sectioned from 12 o' clock to 6 o'clock and entirely submitted in cassettes A through I to include ellipse ends in cassette A. Signed (signature on file) Chandler Decker MD [id number] END OF REPORT * ML=Testing performed at Main Lab DEPARTMENT OF PATHOLOGY, [address] [place] [address] Chandler Decker M.D. Director [facility] # [id number] 33 Because ethnic data is not always readily available, this report includes an eGFR for both -Americans and non- Americans. The National Kidney Disease Education Program (NKDEP) does not endorse the use of the MDRD equation for patients that are not between the ages of 18 and 70, are , have extremes of body size, muscle mass, or nutritional status, or are non- or non-. According to the National Kidney Foundation, irrespective of diagnosis, the stage of the disease is based on the level of kidney function: Stage Description GFR(mL/min/1.73 m(2)) 1 Kidney damage with normal or decreased GFR 90 2 Kidney damage with mild decrease in GFR 60-89 3 Moderate decrease in GFR 30-59 4 Severe decrease in GFR 15-29 5 Kidney failure <15 (or dialysis) 34 Desirable <150 Borderline high 150-199 High 200-499 Very High >500 35 Desirable <200 Borderline high 200-239 High >239 36 Low <40 Desirable: 40-60 High: >60 37 Desirable <100 Near Optimal 100-129 Borderline high 130-159 High 160-189 Very High >189 Procedures Date CPT Code Description Status Comment 01/12/2017 43237 Finger Or Heel Stick Completed 01/21/2016 Colonoscopy Completed no longer gets 10/20/2015 53332 Finger Or Heel Stick Completed 08/15/2014 91386 Finger Or Heel Stick Completed 07/16/2014 56945 Finger Or Heel Stick Completed 01/11/2014 00720 Finger Or Heel Stick Completed 11/07/2013 57828 Finger Or Heel Stick Completed 10/08/2013 55004 Finger Or Heel Stick Completed Encounters Type Date Location Provider CPT E/M Dx Office Visit 07/12/2017 10:00a [facility] Penelope Cain M.D. 78383 I10 I48.2 N18.3 Z79.01 Office Visit 01/12/2017 9:20a [facility] Penelope Cain M.D. 96629 Z00.01 I10 I48.2 K21.9 N40.0 N18.3 K59.00 K62.5 Z79.01 Office Visit 08/24/2016 11:00a [facility] Penelope Cain M.D. 32319 Z01.818 H25.13 I10 I48.2 K21.9 N40.0 N18.3 Office Visit 07/21/2016 9:00a [facility] Penelope Cain M.D. 23924 I10 I48.2 K59.00 Office Visit 07/13/2016 11:30a [facility] Office Maria C RaoEnmanuel-C 18737 K59.00 Office Visit 01/21/2016 8:20a [facility] Penelope Cain M.D. 24786 I48.2 I10 K21.9 E78.4 N40.0 Z00.01 T15.01xA Office Visit 10/20/2015 8:30a [place] [address] I10 E78.4 K21.9 I48.2 N40.0 Z23 Z79.01 Office Visit 11/22/2014 9:40a [facility] Office Ryan Louis M.D. 06897 V70.0 Office Visit 10/18/2014 9:30a [facility] Office Ryan Louis M.D. 21541 401.9 272.4 530.81 427.31 Office Visit 07/16/2014 10:50a [facility] Office Ryan Louis M.D. 77704 427.31 401.9 272.4 530.81 V58.61 Office Visit 05/31/2014 9:20a [facility] Office Ryan Louis M.D. 79272 427.31 401.9 530.81 Office Visit 04/19/2014 11:00a [facility] Office Ryan Louis M.D. 68972 569.3 Office Visit 01/11/2014 1:00p [facility] Office Ryan Louis M.D. 91714 401.9 272.4 530.81 427.31 Office Visit 07/11/2013 1:00p [facility] Office Ryan Louis M.D. 17652 401.9 272.4 Office Visit 2012 8:40a [facility] Office Ryan Louis M.D. 44087 272.4 401.9 530.81 600.00 Plan of Care Future Appointment(s):04/12/2018 11:00 am - Penelope Cain M.D. at [facility] Rlnzxd1603/22/2018 9:15 am - Penelope Cain M.D. at [facility] Adlxqp8703/06/2018 - Maria C Rao, Afnp-[id number] Essential (primary) fbwothdeforbM65.01 manager long term care ( current) use of anticoagulantsFollow up:Followup:. (Follow up)N18.3 Chronic kidney disease, stage 3 (moderate)AllComments:~B_~U_Medication Management~b_~u_ Patient Understands medications he's taking? Yes No Are there Barriers to Adherence? Yes No Has the patient been asked about herbal supplements and therapies, and OTC meds? Yes No ~B_~U_Care Plan~b_~u_1. Patient has been queried about patient's goals/preferences and functional/ lifestyle goals at relevant visits. If relevant, describe: na2. Treatment goals as explained to the patient: abovecontinued management of chronic problems stroke prevention during upcoming bx 3. Are there barriers to meeting treatment goals? Yes No If Yes, please describe:4. Self- Management goals as described to the patient: Yes No will check labs and review case with Dr Cain to decide lovonex bridging dose will stop warfarin on 03/22 and come in at 8 am with lovenox for first dose -- this was written on your calendar madyson that their daughter who is a nurse will accompany pt that day
--- NOTE | 2018-03-31 02:49 | ED ---
Neurological HPI - HPI Summary HPI Summary: This patient is an 87 year old M brought in by ambulance to [facility] accompanied by his with a chief complaint of left sided weakness since 00:30. The patient notes that his symptoms began after he woke up to use the bathroom. The patient notes that when he tried to get out of bed he fell down and he was unable to get up by himself. Last known well time was 21:30. Patient reports that most of his symptoms resolved within 30 minutes of onset. The patient rates the pain 0/10 in severity. Symptoms aggravated by nothing. Symptoms alleviated by nothing. Patient denies CP, STARKEY, and SOB. 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 Patient received a prostate biopsy 3 days ago. Patient takes Cumadin. - History of Current Complaint Chief Complaint: EDNeurologicalDeficit Stated Complaint: WEAKNESS Time Seen by Provider: 03/31/18 02:40 Hx Obtained From: Patient Onset/Duration: Sudden Onset, Started hours ago, Resolved Onset Severity: Mild Current Severity: Mild Neurological Deficit Location: LUE, LLE Pain Intensity: 0 Pain Scale Used: 0-10 Numeric Character: Motor Weakness - left sided weakness Aggravating: Nothing Alleviating: Nothing Associated Signs and Symptoms: Positive: Weakness - in left side, Change in Medication - recently put on Cumadin. Negative: Headache, Chest Pain, Shortness of Breath - Allergy/Home Medications Allergies/Adverse Reactions: Allergies Allergy/AdvReac Type Severity Reaction Status Date / Time morphine Allergy Unknown Verified 03/31/18 03:16 Reaction Details Home Medications: Home Medications Atenolol [Tenormin 100 MG] 50 mg PO DAILY 03/31/18 [History Confirmed 03/31/18] Enoxaparin(*) [Lovenox(*)] 100 mg SUBCUT Q24HR 03/31/18 [History Confirmed 03/31] PMH/Surg Hx/FS Hx/Imm Hx Endocrine/Hematology History: Denies: Hx Diabetes, Hx Thyroid Disease Cardiovascular History: Reports: Hx Hypertension Respiratory History: Reports: Other Respiratory Problems/Disorders - LUNG VOLUME LOW- WHEN TAKING LUNG TEST AT MD OFFICE PER PATIENT Denies: Hx Asthma, Hx Chronic Obstructive Pulmonary Disease (COPD) GI History: Reports: Other GI Disorders - HISTORY OF REDDENED AREAS IN STOMACH- OMEPRAZOLE FOR Denies: Hx Ulcer Musculoskeletal History: Reports: Hx Arthritis - HX OF KNEES Sensory History: Reports: Hx Contacts or Glasses - GLASSES, Hx Hearing Aid - BILATERAL Opthamlomology History: Reports: Hx Contacts or Glasses - GLASSES Neurological History: Reports: Hx CVA - 1985 and 1990, Hx Transient Ischemic Attacks (TIA) - Surgical History Surgery Procedure, Year, and Place: 1947-APPENDECTOMY. 1961-INTERNAL HEMORROIDS REMOVED. 2008-RIGHT KNEE REPLACEMENT. 2009-LEFT KNEE REPLACMENT. LEFT KNEE IMPLANT REMOVED FOR INFECTION. LEFT KNEE IMPLANT-2010- JT IMPLANT Hx Anesthesia Reactions: No - Immunization History Date of Influenza Vaccine: Fall 2016 Infectious Disease History: No Infectious Disease History: Denies: Hx Hepatitis, History Other Infectious Disease, Traveled Outside the [place] in Last 30 Days - Family History Known Family History: Positive: Other - CVA- paternal - Social History Alcohol Use: Weekly Alcohol Amount: 1 PER WEEK Substance Use Type: Reports: None Smoking Status (MU): Never Smoked Tobacco Review of Systems Negative: Epistaxis Negative: Chest Pain Negative: Shortness Of Breath Negative: Vomiting Positive: Weakness - left sided weakness. Negative: Headache All Other Systems Reviewed And Are Negative: Yes Physical Exam - Summary Physical Exam Summary: Appearance: Well-appearing, Well-nourished, lying in bed comfortably Skin: Warm, dry, no obvious rash Eyes: sclera anicteric, no conjunctival pallor ENT: mucous membranes moist, pharynx appears normal Neck: Supple, nontender Respiratory: Clear to auscultation, no signs of respiratory distress Cardiovascular: Normal S1, S2. No murmurs. Normal distal pulses in tibial and radial bilaterally. Abdomen: Soft, nontender, normal active bowel sounds present Musculoskeletal: Normal, Strength/ROM Intact, Motor function in all 4 extremities is normal and symmetric. There is no rigidity or tremor noted. Neurological: A&Ox3, awake and alert, mentation is normal, speech is fluent and appropriate, Level of consciousness nml. The patient is alert and oriented. Cranial nerves are grossly intact. Gaze is conjugate and without nystagmus. Peripheral vision is intact to confrontation. There are no gross sensory abnormalities to light touch. There is no truncal or fine motor ataxia. Gait is normal. GCS 15 Psychiatric: affect is normal, does not appear anxious or depressed Triage Information Reviewed: Yes Vital Signs On Initial Exam: Initial Vitals Pulse Resp BP Pulse Ox 73 9 164/85 96 03/31/18 02:38 03/31/18 02:38 03/31/18 02:38 03/31/18 02:38 Vital Signs Reviewed: Yes Diagnostics - Vital Signs Vital Signs Temp Pulse Resp BP Pulse Ox 03/31/18 02:41 98.8 F 85 18 164/85 95 03/31/18 02:39 75 11 96 03/31/18 02:38 73 9 164/85 96 - Laboratory Result Diagrams: 03/31/18 03:08 03/31/18 03:08 Lab Statement: Any lab studies that have been ordered have been reviewed, and results considered in the medical decision making process. - Radiology CXR Radiology Interpretation Completed By: ED Physician - Dr. Blackmon, pending official report Summary of Radiographic Findings: no active disease. - CT CT brain CT Interpretation Completed By: Radiologist - Dr. Blackmon has reviewed this report Summary of CT Findings: 1. Moderate chronic ischemic white matter change and mild atrophy. 1. Minimal ethmoid sinus disease. - EKG 03:03 Cardiac Rate: NL EKG Rhythm: Sinus Rhythm ST Segment: Normal Ectopy: None Summary of EKG Findings: NSR at 74 bpm. P waves, QRS complex, and T waves are within normal limits, T waves and intervals are normal, no ischemic changes. This is a normal EKG. NIH Scale - NIH Scale Level of Consciousness: Alert/Keenly Responsive Ask Patient the Month and His/Her Age: Both Correct Ask Pt to Open/Close Eyes and Anode Crew Supervisor/Release Non-Paretic Hand: Both Correctly Best Gaze (Only Horizontal Eye Movement): Normal Visual Field Testing: No Visual Loss Facial Paresis-Pt to Smile & Close Eyes or Grimace Symmetry: Normal/Symmetrical Motor Function - Right Arm: No Drift-Holds 10 Seconds Motor Function - Left Arm: No Drift-Holds 10 Seconds Motor Function - Right Leg: No Drift-Holds 10 Seconds Motor Function - Left Leg: No Drift-Holds 10 Seconds Limb Ataxia-Must be out of Proportion to Weakness Present: Absent Sensory (Use Pinprick to Test Arms/Legs/Trunk/Face): Normal Best Language (Describe Picture, Name Items): No Aphasia Dysarthria (Read Several Words): Normal Extinction and Inattention: No Abnormality Total Score: 0 Course/Dx - Course Course Of Treatment: This patient is an 87 year old M with hx CVA brought in by ambulance to [facility] accompanied by his with a chief complaint of left sided weakness since 00:30. Last known well time 21:30. Patient reports that most of his symptoms resolved within 30 minutes of onset. Efra guthrie called at 02:53. An EKG reveals NSR at 74 bpm. P waves, QRS complex, and T waves are within normal limits, T waves and intervals are normal, no ischemic changes. This is a normal EKG. CXR reveals, per ED physician, no active disease. CT Brain reveals, per radiologist, 1. Moderate chronic ischemic white matter change and mild atrophy. 1. Minimal ethmoid sinus disease. ED physician has reviewed this radiology report. Test results with no significant abnormalities. In the ED course the patient was given IV fluids. We discussed patient care with Dr. Thomas and they agreed to admit the patient. Pt will be admitted to [facility]. Dx TIA. The patient is agreeable with this plan. As the patient is on Lovenox, presented with a wake- up neurological deficit with a last known well of greater than 5 hours before presentation, and has rapidly improved to an NIH SS of 0, he is not a candidate for thrombolytic therapy and does not need transfer for invasive therapy. At present, he needs admission for observation and further workup for his cerebrovascular disease. - Diagnoses Provider Diagnoses: TIA (transient ischemic attack) During the Visit The Following Alert/Code Occurred: Efra Guthrie - called at 02:53 - Physician Notifications Discussed Care Of Patient With: Saba Thomas Time Discussed With Above Provider: 03:45 Instructed by Provider To: Admit As Inpatient Discharge - Sign-Out/Discharge Documenting (check all that apply): Patient Departure - admit - Discharge Plan Condition: Stable Disposition: ADMITTED TO [facility] Referrals: Penelope Cain MD [Primary Care Provider] - - Billing Disposition and Condition Condition: STABLE Disposition: Admitted to [facility] - Attestation Statements Document Initiated by Scribe: Yes Documenting Scribe: Charla Zeng Provider For Whom Scribe is Documenting (Include Credential): Lauri Blackmon MD Scribe Attestation: Charla Caruso, wichoibed for Lauri Blackmon MD on 03/31/18 at 0440. Scribe Documentation Reviewed: Yes Provider Attestation: The documentation as recorded by the scribeCharla accurately reflects the service I personally performed and the decisions made by me, Lauri Blackmon MD Status of [place] Document: Viewed
[2018-03-31] MEDS ORDERED: NS 0.9% 1000 ML* 1,000 ML IV ONE (02:51)
[2018-03-31 03:18] LABS: ABS Basophils 0.1 10^3/ul (0-0.2); ABS Eosinophils 0.4 10^3/ul (0-0.6); ABS Lymphocytes 2.4 10^3/ul (1.0-4.8); ABS Monocytes 0.7 10^3/ul (0-0.8); ABS Neutrophils 4.9 10^3/ul (1.5-7.7); ABS Nucleated RBC 0 10^3/ul; Hematocrit 43 % (42-52); Hemoglobin 14.1 g/dl (14.0-18.0); Lymphocyte % 27.6 %; Mean Corpuscular HGB Conc 33 g/dl (31-36); Mean Corpuscular Hemoglobin 29 pg (27-31); Mean Corpuscular Volume 89 fL (80-94); Mean Platelet Volume 8.2 fL (7.4-10.4); Nucleated Red Blood Cells % 0.1; Platelet Count 183 10^3/ul (150-450); Red Blood Count 4.81 10^6/ul (4.00-5.40); Red Cell Distribution Width 15 % (10.5-15); White Blood Count 8.5 10^3/ul (3.5-10.8)
[2018-03-31 03:24] LABS: Activated Partial Thrombo Time 31.1 seconds (26.0-36.3); INR 0.88 (0.77-1.02)
[2018-03-31 03:35] LABS: Albumin/Globulin Ratio 1.3 (1-3); BUN/Creatinine Ratio 16.7 (8-20); Calcium 9.1 mg/dL (8.6-10.3); EGFR African American 48.8 (>60); EGFR Non-African American 40.3 (>60); HDL Cholesterol 40.4 mg/dL; Potassium 4.4 mmol/L (3.5-5.0); Total Bilirubin 0.5 mg/dL (0.2-1.0)
[2018-03-31 03:36] LABS: Troponin I 0.01 ng/mL (<0.04)
[2018-03-31] MEDS ORDERED: Aspirin TAB* 325 MG PO ONE (04:11)
--- NOTE | 2018-03-31 04:22 | ADMNOTE ---
Subjective Date of Service: 03/31/18 - HISTORY AND PHYSICAL Interval History: HISTORY AND PHYSICAL CHIEF COMPLAINT: left leg and arm weakness HISTORY OF PRESENTING ILLNESS: This is an 87 year old Male with history of atrial fibrillation, stroke in 1984, 1987, with no residual deficits, hypertension, who presents to the emergency room because of left arm and left leg weakness. Patient normally takes coumadin due to atrial fibrillation. On Tuesday, 3 days ago he had a prostate biopsy. Five days prior to prostate biopsy his coumadin was held and he was taking lovenox 100mg subQ daily. He has been taking Lovenox 100mg subQ daily since the day after biopsy as well. Last night he went to bed at about 9:30 to 10:00 PM. He woke up at around 1:00, at which point he felt his left leg and arm was weak, he tried to stand up but was unable to and had to lower himself on the ground with using the bed as support, he did not fall down, there was head trauma, no loss of consciousness. His son got up to help him, and his son noted that his left arm and left leg were weak, he had slurred speech. So they decided to get him to the hospital. Per the emergency room physician, when he evaluated the patient, all the symptoms were resolved. Patient does not have any hematuria. PAST MEDICAL HISTORY Atrial fibrillation Stroke 1984, 1987 Hypertension BPH PAST SURGICAL HISTORY Prostate biopsy Appendectomy Knee surgery SOCIAL HISTORY Lives at home with and son Does not smoke, no alcohol use FAMILY HISTORY Mother: lived till age 98. Father: Stroke with hemiparesis. Review of Systems - Measurements Intake and Output: Intake and Output Last 24 Hours 03/28/18 03/29/18 03/30/18 03/31/18 06:59 06:59 06:59 06:59 Weight 217 lb - Review of Systems Constitutional Symptoms: Positive: Weakness Negative: Weight Gain, Fever, Night Sweats HEENT: Positive: Dental Problems Negative: Change in Hearing - chronically hard of hearing., Sinus Problem Eyes: Negative: Change in Vision, Double Vision, Eye Pain Thyroid: Negative: Constipation, Palpitations Pulmonary: Negative: Cough, Sputum, Shortness of Breath Cardiology: Negative: Chest Pain, Shortness of Breath, Palpitations, Swelling of Ankles Gastroenterology: Negative: Abdominal Pain, Nausea, Vomiting, Heartburn, Constipation Genital - Urinary: Negative: Dysuria, Hematuria, Nocturia Genitourinary - Male: Positive: Prostatism Musculoskeletal: Negative: Joint Stiffness, Low Back Pain Hematologic/Lymphatic: Positive: Use of Anticoagulant Neurology: Positive: Unexplained Weakness Negative: Headache, Migraines Psychiatry: Negative: Depression, Depressed Mood Objective Active Medications: Amlodipine Besylate (Norvasc Tab*) 5 mg PO DAILY [facility] Ascorbic Acid (Vitamin C Tab*) 1,000 mg PO DAILY [facility] Atorvastatin Calcium (Lipitor*) 20 mg PO 1700 [facility] Cholecalciferol (Vitamin D Tab*) 1,000 units PO DAILY [facility] Enoxaparin Sodium (Lovenox(*)) 100 mg SUBCUT Q12H [facility] Finasteride (Proscar Tab*) 5 mg PO DAILY [facility] Non-Formulary Medication (Atenolol [Tenormin 100 Mg]) 50 mg PO DAILY [facility] Tamsulosin HCl (Flomax Cap*) 0.4 mg PO DAILY [facility] Vital Signs - 8 hr 03/31/18 03/31/18 03/31/18 02:38 02:39 02:41 Temperature 98.8 F Pulse Rate 73 75 85 Respiratory 9 11 18 Rate Blood Pressure 164/85 164/85 (mmHg) O2 Sat by Pulse 96 96 95 Oximetry 03/31/18 03/31/18 03/31/18 02:52 03:04 03:11 Temperature Pulse Rate 75 76 Respiratory 15 Rate Blood Pressure 154/81 (mmHg) O2 Sat by Pulse 95 95 96 Oximetry 03/31/18 03:41 Temperature Pulse Rate 73 Respiratory 16 Rate Blood Pressure 148/83 (mmHg) O2 Sat by Pulse 95 Oximetry Oxygen Devices in Use Now: None Appearance: Elderly male lying in ER stretcher, not in distress Eyes: PERRLA, - - No nystagmus Ears/Nose/Mouth/Throat: Mucous Membranes Moist Neck: NL Appearance and Movements; NL JVP, Trachea Midline Respiratory: Symmetrical Chest Expansion and Respiratory Effort, Clear to Auscultation Cardiovascular: NL Sounds; No Murmurs; No JVD, RRR, No Edema Abdominal: NL Sounds; No Tenderness; No Distention, No Hepatosplenomegaly Extremities: No Edema Skin: No Rash or Ulcers Neurological: Alert and Oriented x 3, NL Sensation, - - motor is 5/5 all four extremities, speech is clear/coherent, symetric smile, no facial droop, no dysmetria, no dysdiadokinesia Result Diagrams: 03/31/18 03:08 03/31/18 03:08 Diagnostic Imaging: Order Information: CT BRAIN WO Findings were discussed with LAURI BLACKMON at 03/31/2018 3:14 AM EST. To contact [facility] with a general question: [facility] - [phone] For direct physician to physician contact: Physician Hotline - [phone] [facility] ([facility] ID #[id number]) <Electronically signed by Lauri Lacey MD in OV>03/31/18313 Dictated by: Lauri Lacey MD Dictated Date/Time:03/31/18313 Transcribed Date/Time: Copy to: Penelope Cain MD; Lauri Blackmon MD EXAM: CT Head Without Contrast EXAM DATE/TIME: 03/31/2018 3:01 AM CLINICAL HISTORY: 87 years old, male; Signs and symptoms; Other: Neuro changes; Additional info: Neurological changes/code mari TECHNIQUE: Axial computed tomography images of the head/brain without contrast. All CT scans at this facility use at least one of these dose optimization techniques: automated exposure control; mA and/or kV adjustment per patient size (includes targeted exams where dose is matched to clinical indication); or iterative reconstruction. COMPARISON: No relevant prior studies available. FINDINGS: Brain: There is moderate patchy low attenuation of deep white matter with probable areas of old deep white matter or lacunar infarct. There is mild prominence of the peripheral sulci. Ventricles: There is mild prominence of the central ventricular system. Bones/joints: Normal. No acute fracture. Sinuses: Minimal ethmoid sinus mucosal thickening. Mastoid air cells: Normal as visualized. No mastoid effusion. Soft tissues: Normal. IMPRESSION: 1. Moderate chronic ischemic white matter change and mild atrophy. 2. Minimal ethmoid sinus disease. EKG Data: Sinus rhythm Assess/Plan/Problems-Billing Assessment: - Patient Problems (1) TIA (transient ischemic attack) Current Visit: Yes Status: Acute Code(s): G45.9 - TRANSIENT CEREBRAL ISCHEMIC ATTACK, UNSPECIFIED SNOMED Code(s): 512254161 Comment: patient symptoms have resolved not a tpa candidate- by the time I evalauted the patient, out of window- I was called at 3:45 AM to evalaute the patient, further symptoms resolved and he has been taking lovenox will get MRI and ECHO. It seems that he is taking lovenox 100mg subQ daily for having atrial fibrillation instead of coumadin due to prostate biopsy- per his weight and kidney function- it is underdosing. will change to lovenox 100mg subQ BID- he has no hematuria. will monitor. PT eval. (2) BPH (benign prostatic hyperplasia) Current Visit: Yes Status: Acute Code(s): N40.0 - BENIGN PROSTATIC HYPERPLASIA WITHOUT LOWER URINRY TRACT SYMP SNOMED Code(s): 244928542 Comment: recent biopsy follows with Dr. Edouard no hematuria, monitor continue home medication: flomax, finasteride (3) Atrial fibrillation Current Visit: Yes Status: Acute Code(s): I48.91 - UNSPECIFIED ATRIAL FIBRILLATION SNOMED Code(s): 92301778 Comment: rate controlled, and currently in sinus. see above regarding anticoagulation (4) HTN (hypertension) Current Visit: Yes Status: Acute Code(s): I10 - ESSENTIAL (PRIMARY) HYPERTENSION SNOMED Code(s): 80794388 Comment: continue home medications Status and Disposition: Assessment and plan discussed with patient and bedside Additional management as the hospital course progresses, per discretion of daytime rounding hospitalist. Medications/Allergies Medications: Home Medications Medication Instructions Recorded Confirmed Type Ascorbic Acid TAB* [Vitamin C 1,000 mg PO DAILY 07/25/13 03/31/18 History TAB*] Atorvastatin* [Lipitor 20 MG*] 20 mg PO 1700 07/25/13 03/31/18 History Cholecalciferol TAB* [Vitamin D 1,000 unit PO DAILY 07/25/13 03/31/18 History TAB*] Finasteride TAB* [Proscar TAB*] 5 mg PO DAILY 07/25/13 03/31/18 History Multivitamin [Multi-Vitamin] 1 tab PO DAILY 07/25/13 03/31/18 History Tamsulosin CAP* [Flomax CAP*] 0.4 mg PO DAILY 07/25/13 03/31/18 History amLODIPine TAB* [Norvasc TAB*] 5 mg PO DAILY 07/25/13 03/31/18 History Flaxseed Oil [Flaxseed Oil Nisula-3] 1 cap PO DAILY 12/16/14 03/31/18 History Atenolol [Tenormin 100 MG] 50 mg PO DAILY 03/31/18 03/31/18 History Enoxaparin(*) [Lovenox(*)] 100 mg SUBCUT Q24HR 03/31/18 03/31/18 History Allergies/Adverse Reactions: Allergies Allergy/AdvReac Type Severity Reaction Status Date / Time morphine Allergy Unknown Verified 03/31/18 03:16 Reaction Details
[2018-03-31] MEDS: Enoxaparin(*) 100 MG/ML SYR SUBCUT SCH ×2 (07:22→17:35)
[2018-03-31] MEDS ORDERED: Aspirin 81 mg CHEW TAB* 81 MG TAB.CHEW PO ONE (07:30)
[2018-03-31] MEDS ORDERED: amLODIPine TAB* 5 MG PO SCH (09:00)
[2018-03-31] MEDS ORDERED: Cholecalciferol TAB* 1000 UNITS PO SCH (09:00)
[2018-03-31] MEDS ORDERED: Tamsulosin CAP* 0.4 MG PO SCH (09:00)
[2018-03-31] MEDS ORDERED: Ascorbic Acid TAB* 500 MG PO SCH (09:00)
[2018-03-31] MEDS ORDERED: Prenatal Vitamin TAB PO SCH (09:00)
[2018-03-31] MEDS ORDERED: Atenolol TAB* 50 MG PO SCH (09:00)
[2018-03-31] MEDS ORDERED: Finasteride TAB* 5 MG PO SCH (09:00)
[2018-03-31 14:45] LABS: Urine Appearance Clear; Urine Bacteria Absent (Absent); Urine Bilirubin Negative (Negative); Urine Blood 2+ (Negative); Urine Color Yellow; Urine Glucose Negative (Negative); Urine Ketones Negative (Negative); Urine Nitrite Negative (Negative); Urine Protein Negative (Negative); Urine Red Blood Cell 3+(>10/hpf) (Absent); Urine Specific Gravity 1.018 (1.010-1.030); Urine Urobilinogen Negative (Negative); Urine White Blood Cell Trace(0-5/hpf) (Absent)
[2018-03-31] MEDS ORDERED: Atorvastatin* 20 MG TAB PO SCH (17:00)
[2018-03-31 17:39] VITALS: BP 140/70
--- NOTE | 2018-03-31 17:56 | ECHO ---
Patient: CRISSY ALCANTARA [facility] Rec#: [id number] : 1930 Date: 03/31/2018 Age: 87y Weight: kg / NaN lbs Sex: M Room#: 445-01 Admit Date#: 03/31/2018 Type: Inpatient Referring: Saba Thomas Reading: Juan Arriloa MD Auto Electrician: Evelyn White RN RDCS CC: Donell Faustin MD CC: Penelope Cain Transthoracic Echocardiogram Indication: TIA BP: 163/91 HR: 83 Rhythm: NSR with PACs Findings History: A. fib, CVA, HTN, obesity Technical Comments: The study quality is fair. The study is technically limited due to patient body habitus. Left Ventricle: The left ventricular chamber size is normal. Mild concentric left ventricular hypertrophy is observed. There is increased basal septal hypertrophy noted without evidence of an increased gradient across the left ventricular outflow tract. Global left ventricular wall motion and contractility are within normal limits. There is normal left ventricular systolic function. The estimated ejection fraction is 60-65%. Abnormal left ventricular diastolic function is observed. The left ventricular diastolic filling pattern is consistent with pseudonormalization. Left Atrium: The left atrium is mildly dilated. Right Ventricle: The right ventricular chamber size and systolic function are within normal limits. Right Atrium: The right atrium is not well visualized. There is evidence of an atrial septal aneurysm. Aortic Valve: The aortic valve is trileaflet. The aortic valve leaflets are moderately thickened. Systolic excursion of the aortic valve cusps is reduced. There is a trace of aortic regurgitation. There is moderate aortic stenosis.The MISTY by planimetry in 1.5 cm2. The peak gradient may be underestimated due to the uncoiled aorta and suboptimal doppler angle. The mean gradient of the aortic valve is 17 mmHg. The peak instantaneous gradient of the aortic valve is 27 mmHg. The aortic valve area, by peak velocities, is calculated at 1.5 cm2. The aortic valve area, by VTI's, is calculated at 1.5 cm2. The dimensionless index is 0.38-0.39. Highest aortic valve velocity was acquired with Pedoff in apical position. Mitral Valve: There is mitral annular calcification. The mitral valve leaflets are mildly thickened. There is a trace of mitral regurgitation. There is no evidence of mitral stenosis. Tricuspid Valve: The tricuspid valve leaflets are normal. There is trace to mild tricuspid regurgitation. No pulmonary hypertension is noted. There is no tricuspid stenosis. Pulmonic Valve: The pulmonic valve appears normal. There is mild pulmonic regurgitation. There is no pulmonic stenosis. Pericardium: There is no significant pericardial effusion. A pericardial fat pad is visualized. Aorta: There is mild dilatation of the ascending aorta. There is no dilatation of the aortic arch. There is mild dilatation of the aortic root. Pulmonary Artery: The main pulmonary artery is not well visualized. Venous: The venous system is not well visualized. The inferior vena cava is not visualized. Conclusions The study quality is fair. Mild concentric left ventricular hypertrophy is observed. There is increased basal septal hypertrophy noted without evidence of an increased gradient across the left ventricular outflow tract. There is normal left ventricular systolic function. The estimated ejection fraction is 60-65%. The left ventricular diastolic filling pattern is consistent with pseudonormalization. The left atrium is mildly dilated. There is evidence of an atrial septal aneurysm. There is moderate aortic stenosis. The MISTY by planimetry in 1.5 cm2. The peak gradient may be underestimated due to the uncoiled aorta and suboptimal doppler angle. The mean gradient of the aortic valve is 17 mmHg. The aortic valve area, by peak velocities, is calculated at 1.5 cm2. There is a trace of mitral regurgitation. There is trace to mild tricuspid regurgitation. Measurements Name Value Normal Range RVDdMajor (2D) 4.1 cm (2.2 - 4.4) IVSd (2D) 1.2 cm (0.6 - 1) LVPWd (2D) 1.2 cm (0.6 - 1) LVIDd (2D) 4.9 cm (3.6 - 5.4) LVIDs (2D) 3.4 cm - LV FS (2D) 31 % (25 - 45) Aortic Annulus 2.4 cm (1.4 - 2.6) Ao root diameter (2D) 3.6 cm (2.1 - 3.5) Ascending Ao 3.6 cm (2.1 - 3.4) Aortic arch 3.2 cm (1.8 - 3.4) LA dimension (AP) 2D 3.9 cm (2.3 - 3.8) LAd ISD 4CH 6.3 cm (2.9 - 5.3) LA ISD 4CH W 5 cm (2.5 - 4.5) Name Value Normal Range LA ESV BP (A/L) index 35 ml/m2 - Name Value Normal Range MV E-wave Vmax 0.79 m/sec - MV deceleration time 275 msec - MV A-wave Vmax 1.3 m/sec - MV E:A ratio 0.6 ratio - LV septal e' Vmax 0.05 m/sec - LV lateral e' Vmax 0.05 m/sec - LV E:e' septal ratio 15.8 ratio - LV E:e' lateral ratio 15.8 ratio - Name Value Normal Range AV Vmax 2.6 m/sec - AV VTI 54.5 cm - AV peak gradient 27 mmHg - AV mean gradient 17 mmHg - LVOT diameter 2.2 cm - LVOT Vmax 1 m/sec - LVOT VTI 21.3 cm - LVOT peak gradient 4 mmHg - LVOT mean gradient 3 mmHg - DOI (VTI) 0.39 ratio - DOI (Vmax) 0.38 ratio - MISTY (planimetry) 1.51 cm2 - MISTY (continuity Vmax) 1.5 cm2 - MISTY (continuity VTI) 1.5 cm2 - TANK Vmax 0.45 m/sec - Name Value Normal Range TR Vmax 2.4 m/sec - TR peak gradient 23 mmHg - RAP 8 mmHg - RVSP 31 mmHg - Name Value Normal Range PV Vmax 0.6 m/sec -
--- NOTE | 2018-03-31 19:53 | CONS ---
NEUROLOGY CONSULTATION REPORT: DATE OF CONSULT: 03/31/18 CONSULTING PROVIDER: Dr. Saba Thomas. REASON FOR CONSULT: Transient left hemiparesis. CHIEF COMPLAINT: Left-sided weakness. HISTORY OF PRESENT ILLNESS: Mr. Joseph Yoon is a pleasant 87-year-old man with history of enlarged prostate, status post recent biopsy done on Tuesday, . The patient also has atrial fibrillation, on chronic Coumadin use. Coumadin was held for the procedure and he was put on Lovenox 100 mg subcutaneous daily. The patient was supposed to take 100 mg subcutaneous twice daily for full therapeutic dose of Lovenox; however, he was taking only 100 mg daily. The prescription was given 5 days prior to the prostate biopsy. The patient stated that he has not restarted Coumadin as he is still waiting for the biopsy results and see if he is going to undergo any major prostate surgery. The patient also has history of TIA in 1984 and in 1985 where he had slurred speech and had left-sided weakness that completely resolved after 3 to 4 hours. The patient presented to [facility] early this morning today on 03/31. He stated that he got up to go use the bathroom at 1 a.m. He was last known well at 10 p.m. when he went to sleep on 03/30/18. His son heard him stumbling in the room. The patient apparently fell on the ground, but did not lose consciousness or hit his head. The patient stated that the left arm and left leg were not functioning appropriately. He was weak. The patient then was rushed to the ED for further evaluation. By the time he got to the ED at approximately 2:00 to 2:30 a.m., his symptoms completely resolved. Current NIH Stroke Scale is 0. The patient stated that he has no headaches, visual disturbance, focal weakness, or paresthesias. He has no slurred speech. He understands that he needs to take the Lovenox twice daily. The patient had a CT of the head without contrast completed on 03/31/18. There was a report stating that there are moderate chronic ischemic white matter changes and mild atrophy with mild ethmoid sinus disease with no evidence of intracranial abnormality. Laboratory data: The patient had a WBC of 8.5, hemoglobin of 14.1 , hematocrit of 43, platelet count of 183,000. INR of 0.88, APTT 31.1. Sodium 138, potassium 4.4, chloride 106, BUN 27, creatinine 1.62. LDL of 95. Urinalysis: No pyuria. No new medication. Electrocardiogram was reviewed on 03/31/18, sinus rhythm with prolonged ID interval of greater than 220. PAST MEDICAL HISTORY: Prostate hypertrophy, being evaluated for possible prostate cancer; hypertension; dyslipidemia; previous TIAs. Recent prostate biopsy. The patient has history of atrial fibrillation, appendectomy, knee surgery. MEDICATIONS: 1. Multivitamins. 2. Vitamin D. 3. Tamsulosin 0.4 mg p.o. daily. 4. Atorvastatin 20 mg p.o. 5. Amlodipine 5 mg p.o. daily. 6. Finasteride 5 mg p.o. daily. 7. Vitamin C 1000 mg p.o. daily. 8. Flaxseed oil 1 cap p.o. daily. 9. Atenolol 50 mg p.o. daily. 10. He was on enoxaparin 100 mg subcu every 24 hours before hospitalization. Currently, the patient is on enoxaparin 100 mg subcu every 12 hours scheduled. ALLERGIES: MORPHINE. FAMILY HISTORY: His father of stroke at age 64. His mother of old age at 96. 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 He denied any smoking or alcohol use. He is and lives with his spouse. His son also lives in the house with him to help care for everyday activities. REVIEW OF SYSTEMS: A 14-point review of systems was obtained and otherwise negative except for what was mentioned in the HPI. PHYSICAL EXAM: Vitals: Temperature of 98.5, heart rate of 73, respiratory rate of 20, oxygen saturation of 96%, blood pressure of 166/81. General: Well- nourished, well-developed elderly man, in no acute distress. Head: Normocephalic, atraumatic without any obvious abnormality. Eyes: Conjunctivae/ corneas are clear. Neck is supple and symmetrical with no carotid bruits. Lungs are clear to auscultation bilaterally. Cardiovascular: Regular rate and rhythm. No murmurs. Extremities: No hammertoes or high arches. No cyanosis or edema. Skin: No skin lesions or lacerations. Psych: Affect is broad and normal mood. Neurological Examination: Mental Status: Awake, alert, and oriented to person, place, time, and general circumstances. The patient informed me today that he refused the MRI as he is extremely claustrophobic. Speech and language including expression, naming, repetition, and comprehension were assessed and found to be normal. Cranial Nerves: Normal confrontation testing bilaterally. Pupils are mid range and reactive to light. Normal consensual response. Extraocular muscles are intact. Sensation is intact to forehead, cheeks, and jaw region bilaterally. There is no facial droop. He is able to hear throughout the history process. Symmetrical palatal elevation. Tongue is symmetrical and midline with no atrophy or fasciculation. Motor Examination: No abnormal movement or pronator drift. Normal bulk and tone throughout. No fasciculation. Neck extension 5/5. He has got strength 5/5 throughout. Reflexes trace throughout with absent at the ankles. Sensation is intact to light touch throughout. Coordination: Normal finger-to- nose bilaterally. Gait: Wide based gait, antalgic, requires mild 1-person assist. The patient does use a cane or rarely a walker at home. NIH Stroke Scale was 0. ASSESSMENT: Mr. Joseph Yoon is an 87-year-old man, who is undergoing evaluation for prostate cancer, who is status post prostate biopsy last Tuesday , 03/28/18. The patient has been off Coumadin at that time and was taking Lovenox 100 mg subcutanously once a day. He presented with a sudden onset left hemiparesis, which is concerning for most likely a transient ischemic attack involving the right MCA vascular territory distribution. According to the primary team, the patient may have been undertreated for his history of atrial fibrillation. The patient should be on Lovenox 1 mg/kg twice daily. However, we discussed this with Dr. Velasquez. The patient does have a history of chronic kidney disease. Dr. Velasquez will check with pharmacy to see if the dosing of the medication is appropriate and the patient may need to go back to the once a day dosing. The patient stated that Coumadin will be eventually restarted eventually when the final pathology results of the recent biopsy is revealed. He may undergo prostate surgery and therefore, his primary team and his urologist is keeping him on the Lovenox for now. The patient is not showing any focal neurological deficit. His NIH Stroke Scale is 0. He would not be a candidate for IV tPA or mechanical thrombectomy. The patient declined MRI brain due to severe claustrophobia. We are pending a transthoracic echo result. RECOMMENDATIONS: From the neurology standpoint, the patient should be on therapeutic dose of anticoagulation therapy. Now, would this be Lovenox 100 mg daily or twice daily, we will find out when further discussed with pharmacy. If he was underdosed before the hospitalization, please start him on a higher dose of Lovenox, but if 100 mg a day of Lovenox is sufficient given his kidney disease, then the patient should be started on aspirin 81 mg daily in addition to the anticoagulation. The patient is taking atorvastatin 20 mg nightly. Please continue that on discharge. Primary stroke prevention was discussed with the patient, his spouse, and his son, Ilan, at bedside. No need for MEDIA RELATIONS MANAGER evaluation or treatment since the patient is back to his normal self. According to family, the patient is ambulating at his baseline. Therefore, if PT/OT evaluation was not completed, no need for that at this time. We discussed fall precautions. TIME SPENT: I spent 75 minutes of which greater than 50% was spent interviewing the patient, obtaining history, examining the patient, education and counseling, and discussing the treatment plan with the patient, Dr. Velasquez, and family. From neurology standpoint, the patient can be discharged after the echo results and after placing him on the appropriate dosing for antithrombotic therapy. [id number]/CPS #: [id number] NELLY
--- NOTE | 2018-03-31 22:28 | DS ---
CC: Dr. Penelope Cain * DISCHARGE SUMMARY: DATE OF ADMISSION: DATE OF DISCHARGE: 03/31/18 PRIMARY CARE PROVIDER: Dr. Penelope Cain. UROLOGIST: Dr. Hector. PRINCIPAL DIAGNOSIS: Transient ischemic attack. SECONDARY DIAGNOSES: 1. Atrial fibrillation. 2. Hypertension. 3. Benign prostatic hyperplasia. 4. Hyperlipidemia. DISCHARGE MEDICATIONS: 1. Multivitamin 1 tab p.o. daily. 2. Flaxseed oil 1 cap p.o. daily. 3. Vitamin D 1000 units p.o. daily. 4. Ascorbic acid 1000 mg p.o. daily. 5. Atenolol 50 mg p.o. daily. 6. Amlodipine 5 mg p.o. daily. 7. Flomax 0.4 mg p.o. daily. 8. Finasteride 5 mg p.o. daily. 9. Lipitor 20 mg p.o. daily. 10. Lovenox 100 mg subcutaneous q.12 hours. HOSPITAL COURSE: Mr. Yoon is an 87-year-old male who presented to the emergency room on 03/31/18 with complaints of left arm and leg weakness. The patient had gone to bed at approximately 9:30 to 10 p.m. on the night prior to admission and woke up at approximately 1 a.m. on the day of admission, at which point he felt that his left arm and leg were weak. He tried to stand up but was unable to do so and had to lower himself to the ground. His son got up to help him and it was noted that his left arm and leg were weak. He was also noted to have slurred speech and therefore was decided to present to the hospital. Of note, the patient had recently had a prostate biopsy approximately 3 days prior to admission. Five days prior to the prostate biopsy , his Coumadin was held and he was started on Lovenox 100 mg subcutaneous daily. At this point, the patient is essentially back to normal. He underwent CT scan of the brain which revealed moderate chronic ischemic weight matter change and mild atrophy as well as minimal ethmoid sinus disease. He declined MRI of the brain. He did undergo transthoracic echocardiogram which revealed an EF of 60% to 65%, mild concentric left ventricular hypertrophy, increased basal septal hypertrophy noted without evidence of an increased gradient across the left ventricular outflow tract. Left ventricular diastolic filling pattern is consistent with pseudo-normalization. There is evidence of an atrial septal aneurysm. There is moderate aortic stenosis. The patient was seen in consultation by Dr. Murcia. It was determined that the patient was perhaps slightly underdosed with Lovenox. His creatinine clearance is 37. The patient should be dosed at 1 mg/kg q.12 hours, though I did explain to both the patient and his son that the patient given his advanced age and chronic kidney disease is borderline for single daily dosing versus twice daily dosing; however, in the setting of presumed TIA, it was recommended to go to twice daily Lovenox dosing. A new prescription for Lovenox has been sent to the patient's pharmacy. The patient did have a lipid profile obtained which revealed a total cholesterol of 156, an LDL of 95, and an HDL of 40. The patient has been maintained on his usual dose of Lipitor due to the fact that the TIA was likely related to his atrial fibrillation. Also of note, the patient's AST and ALT are mildly elevated. This is new in comparison to labs obtained in March 2017. His creatinine is at his baseline level. The patient and his son did not know when he was supposed to go back onto his Coumadin dose. Unfortunately, I was unable to speak with patient's primary care provider today to determine when that was to be. I have asked the patient or his son to contact his PCP's office on Tuesday to discuss when he should be restarted on Coumadin. On the day of discharge, the patient is awake, alert, and oriented, sitting up in bed, in no acute distress. His vital signs are stable. He is afebrile. He does not have any dysarthric speech. His strength is symmetric in all 4 limbs. His cardiac exam revealed a normal S1, S2 with a regular rate and rhythm. There was a systolic murmur heard. There was no lower extremity edema noted. His lungs were clear, and his abdomen was soft, nontender, and nondistended. FOLLOWUP CONCERNS: The patient is being discharged to home today on 03/31/18. ACTIVITIES: Activity level is as tolerated. DIET: Heart healthy. CONDITION ON DISCHARGE: Stable. FOLLOWUP: The patient should follow up with Dr. Penelope Cain in the next 4 to 7 days, and again, call should be made to his PCPs office to determine when he should be restarted on Coumadin. TIME SPENT: Thirty-five minutes were spent on discharging this patient. [id number]/[facility] #: [id number]
== END 2018-03-31 17:38 | disposition home or self-care (01) ==
LOC: ED 02:32 → MEDTELE 04:12
PROVIDERS: ADMIT Internal Medicine; ATTEND Hospitalist
DX: G45.9 Transient cerebral ischemic attack, unspecified (principal); I48.91 Unspecified atrial fibrillation; N40.0 Benign prostatic hyperplasia without lower urinary tract symptoms; R53.1 Weakness; I10 Essential (primary) hypertension; E78.5 Hyperlipidemia, unspecified
CPT/HCPCS: 36415; 70450; 71045; 80053; 80061; 81003; 81015; 83605; 84484; 85025; 85610; 85730; 86850; 86900; 86901; 87086; 93005; 93306; 96361; 96372; 99285; A9270-GY; G0378; G8978-GP-CI; G8979-GP-CI; G8980-GP-CI; G8996-GN-CH; G8997-GN-CH; G8998-GN-CH; J1650

== ENCOUNTER 2018-06-28 10:05 | Emergency (ER) | payer MEDICARE ==
[2018-06-28 11:10] VITALS: BP 134/80
--- NOTE | 2018-06-28 11:46 | UC ---
Ear Complaint HPI - HPI Summary HPI Summary: Pt presents with right ear laceration that he obtained 2 days ago while working in his yard and pruning trees. Pt is on warfarin. Pt states that he woke this morning "scratched his left ear" and inadvertently removed scab and wound continues to bleed. Pt also c/o muffled hearing in left ear. - History of Current Complaint Chief Complaint: UCSkin Stated Complaint: SKIN RIGHT EAR Time Seen by Provider: 06/28/18 11:29 Hx Obtained From: Patient Onset/Duration: Sudden Onset, Still Present Severity Initially: Mild Severity Currently: None Pain Intensity: 2 Associated Signs/Symptoms: Positive: Hearing Loss, Trauma to Ear - Allergies/Home Medications Allergies/Adverse Reactions: Allergies Allergy/AdvReac Type Severity Reaction Status Date / Time morphine Allergy Unknown Verified 03/31/18 03:16 Reaction Details Home Medications: Home Medications Multivitamins/Minerals TAB* [Theragran/minerals TAB*] 1 tab PO DAILY 06/28/18 [ History Confirmed 06/28/18] Pantoprazole TAB * [Protonix TAB*] 40 mg PO DAILY PRN 06/28/18 [History Confirmed 06/28/18] Vit A/C/E AC/Znox/Cupric Oxide [Eyeprotect] 1 tab PO DAILY 06/28/18 [History Confirmed 06/28/18] Warfarin TAB(*) [Coumadin TAB(*)] 2.5 mg PO DAILY 06/28/18 [History Confirmed ] PMH/Surg Hx/FS Hx/Imm Hx Previously Healthy: No Cardiovascular History: Cardiac Disease - Surgical History Surgical History: Yes Surgery Procedure, Year, and Place: 1947-APPENDECTOMY. 1961-INTERNAL HEMORROIDS REMOVED. 2008-RIGHT KNEE REPLACEMENT. 2009-LEFT KNEE REPLACMENT. LEFT KNEE IMPLANT REMOVED FOR INFECTION. LEFT KNEE IMPLANT-2010- JT IMPLANT - Family History Known Family History: Positive: Other - CVA- paternal - Social History Occupation: Retired Lives: With Family Alcohol Use: Occasionally Alcohol Amount: 1 PER WEEK Substance Use Type: None Smoking Status (MU): Never Smoked Tobacco Have You Smoked in the Last Year: No Review of Systems All Other Systems Reviewed And Are Negative: Yes Constitutional: Positive: Negative Skin: Positive: Other - bleeding wound Eyes: Positive: Negative ENT: Positive: Other - hearing loss Respiratory: Positive: Negative Cardiovascular: Positive: Negative Gastrointestinal: Positive: Negative Genitourinary: Positive: Negative Motor: Positive: Negative Neurovascular: Positive: Negative Musculoskeletal: Positive: Negative Neurological: Positive: Negative Psychological: Positive: Negative Is Patient Immunocompromised?: No Physical Exam Triage Information Reviewed: Yes Appearance: Well-Appearing Vital Signs: Initial Vital Signs Temp 98.3 F 06/28/18 11:00 Pulse 76 06/28/18 11:00 Resp 18 06/28/18 11:00 BP 134/80 06/28/18 11:00 Pulse Ox 94 06/28/18 11:00 Vital Signs Reviewed: Yes Eye Exam: Normal ENT: Positive: Other - laceration left ear, outer pinna, bleeding has stopped. cerumen impaction in left ear canal, large amount of cerumen removed, but unable to remove last moderate amount. Pt unable to tolerate ear irrigation. Dental Exam: Normal Neck exam: Normal Respiratory: Positive: No respiratory distress Musculoskeletal Exam: Normal Neurological Exam: Normal Psychological Exam: Normal Skin Exam: Other - left ear outer pinna, laceration bleeding stopped. Ear Complaint Course/Dx - Differential Dx/Diagnosis Differential Diagnosis/HQI/PQRI: Cerumen Impaction Provider Diagnosis: Laceration of left ear, external, Impacted cerumen, left ear Discharge - Sign-Out/Discharge Documenting (check all that apply): Patient Departure All imaging exams completed and their final reports reviewed: No Studies - Discharge Plan Condition: Stable Disposition: HOME Patient Education Materials: Cerumen Impaction (ED), Laceration Without Closure (ED) Referrals: Penelope Cain MD [Primary Care Provider] - If Needed Additional Instructions: PLEASE FOLLOW UP WITH YOUR PCP AND INTENSIVE CARE ANAESTHETIST NEEDED. PLEASE DO NOT TOUCH THE SCAB ON YOUR LACERATION. IF IT DOES COME OFF, APPLY PRESSURE TO CONTROL BLEEDING. APPLY EAR WAX SOFTENING DROPS TO RIGHT EAR CANAL PER MANUFACTURERS INSTRUCTIONS. - Billing Disposition and Condition Condition: STABLE Disposition: Home - Attestation Statements Provider Attestation: I was available for consult. This patient was seen by the MANUELA. The patient was not presented to, seen by, or examined by me. -Madelyn
== END 2018-06-28 12:04 | disposition home or self-care (01) ==
LOC: UCCORT 10:05
DX: S01.312A Laceration without foreign body of left ear, initial encounter (principal); H61.22 Impacted cerumen, left ear; Z88.5 Allergy status to narcotic agent; X58.XXXA Exposure to other specified factors, initial encounter; Y92.007 Garden or yard of unspecified non-institutional (private) residence as the place of occurrence of the external cause
CPT/HCPCS: 69209; 99212; G0463

== ENCOUNTER 2018-08-24 14:44 | Emergency (ER) | payer MEDICARE ==
[2018-08-24 15:12] VITALS: BP 138/54
[2018-08-24] MEDS ORDERED: predniSONE TAB* 20 MG PO ONE (15:30)
[2018-08-24] MEDS ORDERED: Cephalexin CAP* 500 MG PO ONE (15:30)
--- NOTE | 2018-08-24 15:38 | ED ---
Skin Complaint - HPI Summary HPI Summary: 87 yr old male with right hand redness, swelling. Onset yesterday. The patient had pain immediately when getting stung. He has had redness and some swelling. He has no pain today. No other complaints. No tongue or lip swelling. - History of Current Complaint Chief Complaint: UCBiteInjury Time Seen by Provider: 08/24/18 15:16 Stated Complaint: RT HAND SWELLING Pain Intensity: 0 - Allergy/Home Medications Allergies/Adverse Reactions: Allergies Allergy/AdvReac Type Severity Reaction Status Date / Time morphine Allergy Unknown Verified 03/31/18 03:16 Reaction Details PMH/Surg Hx/FS Hx/Imm Hx Endocrine/Hematology History: Denies: Hx Diabetes, Hx Thyroid Disease Cardiovascular History: Reports: Hx Hypertension Respiratory History: Reports: Other Respiratory Problems/Disorders - LUNG VOLUME LOW- WHEN TAKING LUNG TEST AT MD OFFICE PER PATIENT Denies: Hx Asthma, Hx Chronic Obstructive Pulmonary Disease (COPD) GI History: Reports: Other GI Disorders - HISTORY OF REDDENED AREAS IN STOMACH- OMEPRAZOLE FOR Denies: Hx Ulcer Musculoskeletal History: Reports: Hx Arthritis - HX OF KNEES Sensory History: Reports: Hx Contacts or Glasses - GLASSES, Hx Hearing Aid - BILATERAL Opthamlomology History: Reports: Hx Contacts or Glasses - GLASSES Neurological History: Reports: Hx CVA - 1985 and 1990, Hx Transient Ischemic Attacks (TIA) Denies: Hx Headaches Psychiatric History: Denies: Hx Depression - Surgical History Surgery Procedure, Year, and Place: 1947-APPENDECTOMY. 1961-INTERNAL HEMORROIDS REMOVED. 2008-RIGHT KNEE REPLACEMENT. 2009-LEFT KNEE REPLACMENT. LEFT KNEE IMPLANT REMOVED FOR INFECTION. LEFT KNEE IMPLANT-2010- JT IMPLANT Hx Anesthesia Reactions: No - Immunization History Date of Influenza Vaccine: Fall 2016 Infectious Disease History: No Infectious Disease History: Denies: Hx Hepatitis, History Other Infectious Disease, Traveled Outside the [place] in Last 30 Days - Family History Known Family History: Positive: Other - CVA- paternal - Social History Occupation: Retired Alcohol Use: Occasionally Alcohol Amount: 1 PER WEEK Substance Use Type: Reports: None Smoking Status (MU): Never Smoked Tobacco Have You Smoked in the Last Year: No Review of Systems Constitutional: Negative Positive: Other - redness swelling to hand All Other Systems Reviewed And Are Negative: Yes Physical Exam Triage Information Reviewed: Yes Vital Signs On Initial Exam: Initial Vitals Temp Pulse Resp BP Pulse Ox 97.8 F 76 16 138/54 96 08/24/18 15:06 08/24/18 15:06 08/24/18 15:06 08/24/18 15:06 08/24/18 15:06 Vital Signs Reviewed: Yes Appearance: Positive: Well-Appearing, No Pain Distress Skin: Positive: Warm, Skin Color Reflects Adequate Perfusion Head/Face: Positive: Normal Head/Face Inspection Eyes: Positive: EOMI, LADARIUS ENT: Positive: Normal ENT inspection Neck: Positive: Nontender Respiratory/Lung Sounds: Positive: Clear to Auscultation, Breath Sounds Present Cardiovascular: Positive: RRR. Negative: Murmur Abdomen Description: Negative: Distended Musculoskeletal: Positive: Other - right hand with mild swelling and redness over dorsum of hand. neuro vasc intact. Neurological: Positive: Sensory/Motor Intact, Alert, Oriented to Person Place, Time, CN Intact II-III Psychiatric: Positive: Normal Diagnostics - Vital Signs Vital Signs Temp Pulse Resp BP Pulse Ox 08/24/18 15:06 97.8 F 76 16 138/54 96 - Laboratory Lab Statement: Any lab studies that have been ordered have been reviewed, and results considered in the medical decision making process. Course/Dx - Course Course Of Treatment: 87 yr old with localized reaction to the bite and some cellulitis. - Diagnoses Provider Diagnoses: Insect bite, Cellulitis Discharge - Sign-Out/Discharge Documenting (check all that apply): Patient Departure All imaging exams completed and their final reports reviewed: No Studies - Discharge Plan Condition: Good Disposition: HOME Prescriptions: Cephalexin CAP* [Keflex CAP*] 500 mg PO TID #30 cap predniSONE TAB* [Deltasone 20 MG TAB*] 20 mg PO DAILY #3 tab Patient Education Materials: Allergies (ED), Insect Bite or Sting (ED), Cellulitis (ED), Hypertension (ED) Referrals: Penelope Cain MD [Primary Care Provider] - 2 Days - Billing Disposition and Condition Condition: GOOD Disposition: Home
== END 2018-08-24 15:49 | disposition home or self-care (01) ==
LOC: UCCORT 14:44
DX: S60.561A Insect bite (nonvenomous) of right hand, initial encounter (principal); L03.113 Cellulitis of right upper limb; W57.XXXA Bitten or stung by nonvenomous insect and other nonvenomous arthropods, initial encounter; Y93.9 Activity, unspecified; Y92.9 Unspecified place or not applicable; I10 Essential (primary) hypertension
CPT/HCPCS: 99212; A9270-GY; G0463; J7512